=== PATIENT | female | born 1995 | race Caucasian/White ===

== ENCOUNTER 2021-04-05 13:55 | Emergency (ER) | payer OTHER, SELFPAY ==
--- NOTE | ~2021-04-05 | XR_ITS ---
EXAMINATION: XR CHEST CLINICAL INFORMATION: Cough. COMPARISON: None TECHNIQUE: Frontal view of the chest was obtained. FINDINGS: No significant abnormality is noted involving the heart, lungs, mediastinum, bony thorax or soft tissues. XR/XR chest 1V IMPRESSION: Unremarkable chest examination.
[2021-04-05 14:44] VITALS: BP 102/59; PULSE 79; RESP 18; TEMP 36.6; BMI 23.1
[2021-04-05 15:37] LABS: Influenza A PCR NEGATIVE (Negative); Influenza B PCR NEGATIVE (Negative); Resp Syncy Virus RNA Qual PCR NEGATIVE (Negative); SARS COV2 PCR INHOUSE NEGATIVE (Negative)
--- NOTE | 2021-04-05 16:14 | ED.GENADULT ---
HPI - General Adult General Chief complaint: General Medical Stated complaint: headache, back & neck pain Time Seen by Provider: 04/05/21 15:41 Source: patient Mode of arrival: ambulatory Limitations: no limitations History of Present Illness HPI narrative: Patient presents to ED for like viral like syndrome. Patient states last week she had a cough, body aches and headache. Patient now states bilateral lumps on back of neck. Patient states slight chest pain but no shortness of breath. Patient states she is vaccinated against COVID. Denies any exposure recently to COVID. Patient states no one else at home having similar symptoms. Related Data Allergies Allergy/AdvReac Type Severity Reaction Status Date / Time No Known Allergies Allergy Verified 04/05/21 14:42 Review of Systems Review of Systems: Yes all other systems are reviewed and are negative Constitutional: Constitutional: Reports as per HPI, Reports no additional constitutional complaints, Reports body ache(s), Reports chills and Reports headache(s) Eyes: Eyes: Reports as per HPI and Reports no additional eye complaints ENT: Reports system reviewed and no additional complaints, except as documented, Reports as per HPI, Reports headache(s) and Reports neck pain Cardiovascular: Cardiovascular: Reports as per HPI and Reports no additional cardiovascular complaints Respiratory: Respiratory: Reports as per HPI, Reports no additional respiratory complaints and Reports cough Gastrointestinal: Gastrointestinal: Reports as per HPI and Reports no additional gastrointestinal complaints Genitourinary: Genitourinary: Reports no additional female genitourinary complaints and Reports as per HPI Musculoskeletal: Musculoskeletal: Reports no additional musculoskeletal complaints, Reports as per HPI and Reports neck pain Neurologic: Reports system reviewed and no additional complaints, except as documented, Reports as per HPI and Reports headache(s) Psychiatric: Psychiatric: Reports no additional psychiatric complaints and Reports as per HPI [facility], [facility] Social History Social History Advance Directives: No Advance Directives Information Provided: Yes Patient : No Physical Exam Vital Signs: Vital Signs: Last Vital Signs Temp 98.3 F 04/05/21 17:03 Pulse 73 04/05/21 17:03 Resp 20 04/05/21 17:03 BP 104/62 04/05/21 17:03 Pulse Ox 99 04/05/21 17:03 Body Mass Index 23.1 Const: General: cooperative, healthy appearing, comfortable, no acute distress, well developed, alert, awake and Physically active Orientation/consciousness: oriented to person and oriented to place HENMT: Head: Yes normal to inspection, Yes No palpable skull fracture present, Yes normocephalic and Yes atraumatic Eyes: General: appearance normal, both eyes and all related structures Neck: Neck: Yes normal visual inspection, Yes full ROM and Yes lymphadenopathy Neck images: 1. Tender lymphadenopathy, posterior cervical. Cervical lymph node is not mobile. 2. Tender lymphadenopathy, posterior cervical. Cervical lymph node is not mobile. Chest: Chest palpation & inspection: normal inspection of the chest and normal palpation of entire chest wall Resp: Effort & Inspection: normal respiratory effort and able to speak in complete sentences Auscultation: clear to auscultation bilaterally Cardio: Jugular venous distension: no JVD Heart sounds: S1 normal heart sound present and S2 normal heart sound present GI: Inspection: Yes normal to inspection and No abdominal wall ecchymosis Palpation (GI): Soft to palpation, not firm, nontender, no guarding and not rigid : General: No CVA tenderness and Yes no CVA tenderness Back/Spine/Pelvis: Back: no CVA tenderness, No CVA tenderness and No back tenderness Skin: General skin exam: no rashes or lesions noted and elasticity normal Neuro: General: oriented to person and oriented to place Extrem: General: Yes normal to inspection and Yes full ROM Psych: Appearance: grossly normal, well kempt and not disheveled Course Course Course Narrative: Not suspecting lymphoma. Will do chest x-ray and SARS swab. Reevaluation(s) Reevaluation #1: Not suspecting lymphoma due to patient having tender bilateral lymphadenopathy posterior cervical lymph nodes with viral syndrome. Symptoms only been occurring for 1 week. SARs came back negative. Chest x-ray normal and negative for mass. Case discussed with Dr. Worrell who agrees unlikley patient having lymphoma. Will do basic labs and send mono. Negative for subclavicular, axillary, mediastinal, or umbilical lymphadenopathy. Time: 17:01 Reevaluation #2: Patient has mono came back positive. Patient to be discharged. Patient educated no sport contact due to risk of splenic rupture. Time: 18:18 Medical Decision Making MDM Narrative Medical decision making narrative: Ware Lab Data Result diagrams: 04/05/21 16:59 04/05/21 16:59 Labs: Lab Results 04/05/21 04/05/21 04/05/21 Range/Units 14:54 16:59 16:59 WBC 11.7 H (4.8-10.8) X10*3/uL RBC 4.94 (4.20-5.50) X10*6/uL Hgb 10.8 L (12.0-16.0) g/dl Hct 34.9 L (37.0-47.0) % MCV 70.6 L (80.0-98.0) fL MCH 21.9 L (27.0-33.0) pg MCHC 30.9 L (31.0-35.0) g/dl RDW 16.7 H (11.0-16.0) % Plt Count 303 (160-400) X10*3/uL MPV 10.5 (9.4-12.3) fL Immature Gran % (Auto) Cancelled Neut % (Auto) Cancelled Lymph % (Auto) Cancelled Ware % (Auto) Cancelled Eos % (Auto) Cancelled Baso % (Auto) Cancelled Lymph # (Auto) Cancelled Ware # (Auto) Cancelled Eos # (Auto) Cancelled Baso # (Auto) Cancelled Abs Immat Gran (auto) Cancelled Absolute Neuts (auto) Cancelled Absolute Nucleated RBC 0.000 (0.0-0.012) X10*3/uL Nucleated RBC % (auto) 0.0 (0.0-0.2) /100WBC Neutrophils % (Manual) 13 L (45-73) % Band Neutrophils % 8 H (3-5) % Lymphocytes % (Manual) 20 (20-40) % Atypical Lymphs % (Man) 47 H (0-6) % Monocytes % (Manual) 11 (2-11) % Basophils % (Manual) 1 (0-2) % Abs Neuts (Manual) 2.5 (2.0-8.3) X10*3/uL Lymphocytes # (Manual) 2.3 (1.2-4.9) X10*3/uL Atyp Lymphs # (Manual) 5.5 x10*3/uL Monocytes # (Manual) 1.3 H (0.1-1.2) X10*3/uL Basophils # (Manual) 0.1 (0.0-0.2) X10*3/uL Platelet Estimate NORMAL (NORMAL) Plt Morphology Comment NORMAL RBC Morphology NORMAL Smear Tech's Comments MANUAL DIFF Sodium 141 (135-145) mmol/L Potassium 4.3 (3.3-5.1) mmol/L Chloride 107 (96-108) mmol/L Carbon Dioxide 24 (22-29) mmol/L Anion Gap 14 (12-20) BUN 10 (9-16) mg/dL Creatinine 0.64 (0.5-1.4) mg/dL Estim Creat Clear Calc 117.0 Estimated GFR > 60 Random Glucose 81 (60-115) mg/dL Calcium 9.1 (8.4-10.2) mg/dL Total Bilirubin 0.2 (0.0-1.0) mg/dL AST 129 H (5-31) U/L ALT 130 H (0-31) U/L Alkaline Phosphatase 132 H (39-117) U/L Total Protein 7.2 (6.5-8.0) g/dL Albumin 4.1 (3.5-5.0) g/dL Beta HCG, Quant < 2 mIU/mL Monoscreen (Negative) Influenza Type A (PCR) NEGATIVE (Negative) Influenza Type B (PCR) NEGATIVE (Negative) RSV RNA Qual (PCR) NEGATIVE (Negative) SARS-CoV-2 RNA (RT-PCR) NEGATIVE (Negative) S. pyogenes GrpA CARLOS ALBERTO (Negative) 04/05/21 04/05/21 Range/Units 16:59 16:59 WBC (4.8-10.8) X10*3/uL RBC (4.20-5.50) X10*6/uL Hgb (12.0-16.0) g/dl Hct (37.0-47.0) % MCV (80.0-98.0) fL MCH (27.0-33.0) pg MCHC (31.0-35.0) g/dl RDW (11.0-16.0) % Plt Count (160-400) X10*3/uL MPV (9.4-12.3) fL Immature Gran % (Auto) Neut % (Auto) Lymph % (Auto) Ware % (Auto) Eos % (Auto) Baso % (Auto) Lymph # (Auto) Ware # (Auto) Eos # (Auto) Baso # (Auto) Abs Immat Gran (auto) Absolute Neuts (auto) Absolute Nucleated RBC (0.0-0.012) X10*3/uL Nucleated RBC % (auto) (0.0-0.2) /100WBC Neutrophils % (Manual) (45-73) % Band Neutrophils % (3-5) % Lymphocytes % (Manual) (20-40) % Atypical Lymphs % (Man) (0-6) % Monocytes % (Manual) (2-11) % Basophils % (Manual) (0-2) % Abs Neuts (Manual) (2.0-8.3) X10*3/uL Lymphocytes # (Manual) (1.2-4.9) X10*3/uL Atyp Lymphs # (Manual) x10*3/uL Monocytes # (Manual) (0.1-1.2) X10*3/uL Basophils # (Manual) (0.0-0.2) X10*3/uL Platelet Estimate (NORMAL) Plt Morphology Comment RBC Morphology Smear Tech's Comments Sodium (135-145) mmol/L Potassium (3.3-5.1) mmol/L Chloride (96-108) mmol/L Carbon Dioxide (22-29) mmol/L Anion Gap (12-20) BUN (9-16) mg/dL Creatinine (0.5-1.4) mg/dL Estim Creat Clear Calc Estimated GFR Random Glucose (60-115) mg/dL Calcium (8.4-10.2) mg/dL Total Bilirubin (0.0-1.0) mg/dL AST (5-31) U/L ALT (0-31) U/L Alkaline Phosphatase (39-117) U/L Total Protein (6.5-8.0) g/dL Albumin (3.5-5.0) g/dL Beta HCG, Quant mIU/mL Monoscreen Positive A (Negative) Influenza Type A (PCR) (Negative) Influenza Type B (PCR) (Negative) RSV RNA Qual (PCR) (Negative) SARS-CoV-2 RNA (RT-PCR) (Negative) S. pyogenes GrpA CARLOS ALBERTO Negative (Negative) Discharge Plan Discharge Clinical Impression: Mononucleosis Patient Disposition: Home, Self-Care Instructions: Mononucleosis (ED) Additional Instructions: You came back positive for mononucleosis. Which is the cause of your symptoms. Please avoid any physical contact sport which could lead to splenic rupture. You can take naproxen and Tylenol for pain and fever relief. You will be given days off from work. Presents to the ED for any chest pain, shortness of breath, weakness, dizziness, abdominal pain, intractable fever, weakness, or any other concerning symptoms. Please follow-up with primary care provider. Stand Alone Forms: Work/School Release Interventions: ED Discharge Assessment Last Done: 04/05/21 18:30 Discharge Date/Time: 04/05/21 18:36 Print Language: Hungarian
[2021-04-05 17:03] VITALS: BP 104/62; PULSE 73; RESP 20; TEMP 36.8; O2SAT 99
[2021-04-05 17:11] LABS: Hematocrit 34.9 % (37.0-47.0); Hemoglobin 10.8 g/dl (12.0-16.0); Mean Corpuscular HGB Conc 30.9 g/dl (31.0-35.0); Mean Corpuscular Hemoglobin 21.9 pg (27.0-33.0); Mean Corpuscular Volume 70.6 fL (80.0-98.0); Mean Platelet Volume 10.5 fL (9.4-12.3); Platelet Count 303 X10*3/uL (160-400); Red Blood Count 4.94 X10*6/uL (4.20-5.50); Red Cell Distribution Width 16.7 % (11.0-16.0); White Blood Count 11.7 X10*3/uL (4.8-10.8)
[2021-04-05 17:32] LABS: IDNOW Serial# 9DD0AD1C; Strep A Nucleic Acid Negative (Negative)
[2021-04-05 17:44] LABS: Alanine Aminotransferase 130 U/L (0-31); Albumin Level 4.1 g/dL (3.5-5.0); Alkaline Phosphatase 132 U/L (39-117); Anion Gap 14 (12-20); Aspartate Amino Transferase 129 U/L (5-31); Bilirubin Total 0.2 mg/dL (0.0-1.0); Blood Urea Nitrogen 10 mg/dL (9-16); Calcium 9.1 mg/dL (8.4-10.2); Carbon Dioxide 24 mmol/L (22-29); Chloride 107 mmol/L (96-108); Estimated Glomerular Filt Rate > 60; Glucose Random 81 mg/dL (60-115); Potassium 4.3 mmol/L (3.3-5.1); Sodium 141 mmol/L (135-145); Total Protein 7.2 g/dL (6.5-8.0)
[2021-04-05 18:07] LABS: Monotest Positive (Negative); SLIDE REVIEW MANUAL DIFF
[2021-04-05 18:09] LABS: HCG Quantitative < 2 mIU/mL
[2021-04-05 18:10] LABS: Atypical Lymph Absolute Manual 5.5 x10*3/uL; Atypical Lymphs Percent Manual 47 % (0-6); Band Neutrophils Percent 8 % (3-5); Basophils Abs Manual 0.1 X10*3/uL (0.0-0.2); Basophils Percent Manual 1 % (0-2); Lymphocytes Absolute Manual 2.3 X10*3/uL (1.2-4.9); Lymphocytes Percent Manual 20 % (20-40); Monocytes Absolute Manual 1.3 X10*3/uL (0.1-1.2); Monocytes Percent Manual 11 % (2-11); Neutrophils Absolute Manual 2.5 X10*3/uL (2.0-8.3); Neutrophils Percent Manual 13 % (45-73); Platelet Estimate NORMAL (NORMAL); Platelet Morphology Comment NORMAL; RBC Morphology NORMAL
== END 2021-04-05 18:36 | disposition home or self-care (01) ==
PROVIDERS: Physician Assistant; Emergency Provider Emergency Medicine Emergency Medical Services
DX: B27.90 Infectious mononucleosis, unspecified without complication (principal); M54.2 Cervicalgia; Z20.822 Contact with and (suspected) exposure to COVID-19
CPT/HCPCS: 0241U; 36415; 71045; 80053; 84702; 85007; 85027; 86308; 87651; 99283; 99284

== ENCOUNTER 2022-01-10 11:21 | Inpatient (IN) | payer OTHER, SELFPAY ==
--- NOTE | ~2022-01-10 | XR_ITS ---
EXAMINATION: XR CHEST CLINICAL INFORMATION: Muscle pain. COMPARISON: CXR from 01/10/2022. TECHNIQUE: Frontal view of the chest was obtained. FINDINGS: Lungs are hypoinflated and lower lung zones suboptimally evaluated. Interval development of nonspecific hazy and somewhat patchy opacity in the lower lobes (left worse than right). Findings could represent atelectasis or pneumonitis. The left lateral costophrenic sulcus is slightly blunted, possible trace pleural effusion. Cardiac silhouette has normal size and contour. The pulmonary vascular pattern is normal. The visualized bones, and upper abdomen, are unremarkable. XR/XR chest 1V IMPRESSION: The lungs are hypoinflated and lower lobes suboptimally evaluated. There are new hazy, patchy opacities from atelectasis or pneumonia in lower lobes.
--- NOTE | ~2022-01-10 | US_ITS ---
EXAMINATION: US RETROPERITONEAL LIMITED (RENAL ONLY) CLINICAL INFORMATION: Wedge-shaped possible abscess area on CT imaging in patient with flank pain.. COMPARISON: CT abdomen from 01/10/2022. TECHNIQUE: Sonographic imaging of the kidneys was performed using a curved 5 MHz transducer. FINDINGS: RIGHT KIDNEY: 12.2 x 4.2 x 5.7 cm (SAG x AP x TRV). No nephrolithiasis or hydronephrosis. There is a region of slightly altered parenchymal echotexture of the mid to lower pole. This corresponds to the region of pyelonephritis and possible early abscess formation observed on 01/10/2022. There is no evidence of a intrarenal or perinephric fluid collection on this ultrasound examination. LEFT KIDNEY: 10.9 x 5.7 x 4.9 cm (SAG x AP x TRV). The kidney is normal in size, contour, and echogenicity. Renal cortical thickness is normal. No calculi or focal parenchymal lesions. No hydronephrosis. OTHER: Small left pleural effusion is observed. US/US renal BI IMPRESSION: The abnormality of the right kidney is better depicted on the recent abdomen CT than on this ultrasound examination. There is no sonographic evidence of renal abscess or perinephric fluid collection. There is an area of slightly altered parenchymal echotexture of the mid to lower pole of the right kidney, and this corresponds to the area of suspected pyelonephritis and possible early abscess formation seen on 01/10/2022. Small left pleural effusion is present.
--- NOTE | ~2022-01-10 | XR_ITS ---
EXAMINATION: XR CHEST CLINICAL INFORMATION: Tachycardia COMPARISON: None TECHNIQUE: Frontal view of the chest was obtained. FINDINGS: No significant abnormality is noted involving the heart, lungs, mediastinum, bony thorax or soft tissues. XR/XR chest 1V IMPRESSION: Unremarkable chest examination.
--- NOTE | ~2022-01-10 | CT_ITS ---
EXAMINATION: CT ABDOMEN AND PELVIS WITH CONTRAST CLINICAL INFORMATION: Bilateral flank pain COMPARISON: None TECHNIQUE: Multidetector volumetric images were obtained from the superior aspect of the liver through the pubic symphysis following administration 85 mL of Omnipaque 350 intravenous contrast. Sagittal and coronal reformatted images were obtained on the technologist's workstation. Oral contrast: No This CT examination was performed using dose optimization techniques as appropriate, variously including the following: *Automated exposure control *Adjustment of mA and/or kV according to patient size (this includes techniques or standardized protocols for targeted exams where dose is matched to indication/reason for exam; i.e. extremities or head) *Use of iterative reconstruction technique DLP: 498 mGy-cm FINDINGS: LUNG BASES: The visualized lung bases are unremarkable. Trace pericardial fluid. LIVER, GALLBLADDER, AND BILIARY TREE: The liver is normal in size, shape, and attenuation. No focal hepatic lesion or biliary ductal dilatation is present. The gallbladder is unremarkable with no evidence of radiopaque gallstones, gallbladder wall thickening, or obvious pericholecystic inflammatory changes. PANCREAS: Unremarkable. SPLEEN: Unremarkable. ADRENAL GLANDS: Unremarkable. KIDNEYS AND URETERS: Symmetric nephrograms. There is a wedge-shaped area of hypoenhancement/perfusion involving the lower pole the right kidney with small ill-defined low-density cortical foci, which could be compatible with focal pyelonephritis/lobar nephronia an early developing abscess formation. No well-formed the renal abscess identified. Mild perinephric stranding. No hydronephrosis. No perinephric collections. No radiodense renal calculi. BLADDER: Unremarkable. GASTROINTESTINAL TRACT: The small and large bowel are unremarkable. The appendix is unremarkable. No intra-abdominal free air. ABDOMINAL WALL: No significant hernia is appreciated. LYMPH NODES: No lymphadenopathy. VASCULAR: Normal caliber abdominal aorta. PELVIC VISCERA: 1.7 cm peripherally enhancing crenulated left sided corpus luteum. Small amount of free pelvic fluid. Gynecologic structures otherwise unremarkable. OSSEOUS STRUCTURES: Unremarkable. CT/CT abdomen pelvis w IV con IMPRESSION: 1. Wedge-shaped area of hyperenhancement/hyperperfusion in the lower pole of the right kidney with small low-density cortical foci and mild perinephric stranding. Appearance is compatible with acute focal pyelonephritis/acute lobar nephronia. No large well-formed abscess identified. The small low-density foci could represent early developing abscess formation. Correlate with urinalysis.
[2022-01-10 11:56] VITALS: BP 101/55; PULSE 133; RESP 18; TEMP 37.8; O2SAT 98; BMI 24.7
--- NOTE | 2022-01-10 11:59 | ECG_ITS ---
Test Reason : TACHYCARDIA Blood Pressure : / mmHG Vent. Rate : 118 BPM Atrial Rate : 118 BPM P-R Int : 140 ms QRS Dur : 102 ms QT Int : 312 ms P-R-T Axes : 063 101 055 degrees QTc Int : 437 ms Sinus tachycardia Rightward axis Incomplete right bundle branch block Nonspecific T wave abnormality Abnormal ECG No previous ECGs available Referred By: Generic ED Physician Electronically Signed By:DIA POWERS
[2022-01-10 12:13] LABS: Basophils Percent Auto 0.3 % (0-2); Hematocrit 33.7 % (37.0-47.0); Hemoglobin 10.6 g/dl (12.0-16.0); Imm Gran Abs Auto 0.08 X10*3/uL (0.00-0.03); Imm Gran Pct Auto 0.5 % (0.0-0.4); Lymphocytes Absolute Auto 0.8 X10*3/uL (1.2-4.9); MANUAL DIFF FLAG SCAN; Mean Corpuscular HGB Conc 31.5 g/dl (31.0-35.0); Mean Corpuscular Hemoglobin 21.2 pg (27.0-33.0); Mean Corpuscular Volume 67.4 fL (80.0-98.0); Mean Platelet Volume 10.3 fL (9.4-12.3); Monocytes Absolute Auto 0.5 X10*3/uL (0.1-1.2); Monocytes Percent Auto 3.5 % (2-11); Neutrophils Percent Auto 90.7 % (45-73); Platelet Count 240 X10*3/uL (160-400); Red Cell Distribution Width 15.9 % (11.0-16.0); SCAN SMEAR FLAG 1; White Blood Count 15.5 X10*3/uL (4.8-10.8)
[2022-01-10 12:28] LABS: Anion Gap 15 (12-20); Blood Urea Nitrogen 17 mg/dL (9-16); Calcium 8.8 mg/dL (8.4-10.2); Carbon Dioxide 20 mmol/L (22-29); Chloride 106 mmol/L (96-108); Creatinine Clr Calc Pharmacy 100.2; Estimated Glomerular Filt Rate > 60; Glucose Random 101 mg/dL (60-115); Potassium 3.6 mmol/L (3.3-5.1); Sodium 137 mmol/L (135-145)
[2022-01-10 12:30] LABS: COVID-19 Test Negative (Negative); IDNOW Serial# 16C4AD1C
[2022-01-10 12:33] LABS: SLIDE REVIEW VERIFIED
[2022-01-10 12:34] LABS: Troponin-I High Sensitivity < 3.5 ng/L (<3.5-17.0)
[2022-01-10] MEDS: Acetaminophen 325 MG TABLET 650 MG PO ×2 (13:31→23:01)
[2022-01-10 15:43] VITALS: BP 102/49; PULSE 109; RESP 18; TEMP 37.7; O2SAT 99
--- NOTE | 2022-01-10 15:47 | ED_ITS ---
HPI - General Adult General Chief complaint: Arrhythmia/Palpitations Stated complaint: Body aches/Fever/Headache Time Seen by Provider: 01/10/22 15:47 Source: patient Mode of arrival: ambulatory Limitations: no limitations History of Present Illness HPI narrative: 26-year-old female with no significant medical history presents to the emergency department with myalgias, fatigue, malaise, nausea, vomiting, dizziness described as lightheadedness, headache described as diffuse, bilateral, which feels like her typical without vision changes, bilateral flank pain, diffuse abdominal pain all of which started last night around 23:00. Patient tells me this feels like the time she had mononucleosis about a year ago. Patient tells me she feels horrible. Denies chest pain, shortness of breath, recent sick contacts. Patient tells me she is up-to-date on her COVID vaccine. Related Data Allergies Allergy/AdvReac Type Severity Reaction Status Date / Time No Known Allergies Allergy Verified 01/10/22 11:56 Review of Systems Review of Systems: Constitutional : No Weight loss, No Fever, No Chills, + Fatigue, + Malaise ENT/Mouth : No sore throat, No Rhinorrhea Eyes: No Eye Pain, No Swelling, No Redness Cardiovascular : No Chest Pain, No SOB, No Dyspnea on Exertion, No Orthopnea, No Edema, No Palpitations Respiratory : No Cough, No Sputum, No Wheezing Gastrointestinal : + Nausea, + Vomiting, No Diarrhea, No Constipation, No abdominal Pain, No Hematochezia, No Melena Genitourinary : No Dysuria, No Urinary Frequency, No Hematuria, Musculoskeletal : + joint pain, + Myalgias, No Joint Swelling Skin : No Skin Lesions, No rash Neuro : No Weakness, No Numbness, + Dizziness, + Headache Psych : No Anxiety/Panic, No Depression All other systems reviewed and are negative Yes all other systems are reviewed and are negative [facility] Past Medical History Attestation statement: The following information was validated with the patient. Source: old records reviewed and nursing notes reviewed Medical History (Updated 01/10/22 @ 17:39 by CLAYTON Salazar) No known health problems Social History Social History Patient Tobacco Use Status: Current everyday Tobacco user Use of substances other than those prescribed or required for medical reasons: No Advance Directives: No Advance Directives Information Provided: No Physical Exam ED Vital Signs: Vital Signs - 24 hr 01/10/22 11:56 01/10/22 15:43 01/10/22 16:19 Temperature 100.0 F 99.8 F Pulse Rate 133 H 109 H 102 H Respiratory Rate 18 18 18 Blood Pressure 101/55 L 102/49 L 101/53 L Pulse Oximetry 98 99 100 Oxygen Delivery Method Room Air Room Air Room Air 01/10/22 16:36 Temperature 99.4 F Pulse Rate Respiratory Rate Blood Pressure Pulse Oximetry Oxygen Delivery Method BMI result Body Mass Index 24.7 tachycardia and low grade fever. Appearance: Alert.? Oriented X3.? No acute distress.? Head: Normocephalic, atraumatic, no step-offs or deformities Eyes: Pupils equal, round and reactive to light.? Neck: Normal inspection.? Neck supple.? Negative Kernig and Brudzinski. CVS: Rapid rate, regular rhythm likely sinus tachycardia..? Pulses normal.? Respiratory: No respiratory distress.? Breath sounds normal.? Abdomen: Soft and + diffusely tender.? Skin: Skin warm and dry.? Normal skin color.? Normal skin turgor.? Extremities: No lower extremity edema.? No calf ttp. 5/5 strength to bilateral upper and lower extremities 2+ DTR to patella equal and b/l Back: No midline tenderness, no C-spine tenderness, full range of motion, + CVA tenderness bilaterally Neuro: Oriented X 3.? No motor deficit.? No sensory deficit. CN 2-12 intact . No saddle paresthesias. Normal tandem gait w/ normal cordination, normal finger to nose, normal heel to [place]. Course Reevaluation(s) Reevaluation #1: Patient noted to have slight leukocytosis, and a baseline microcytic anemia, patient without electrolyte abnormalities requiring intervention, troponin negative, EKG nonischemic, chest x-ray within normal limits. Rapid COVID nega tive. At this time pending mono spot, urine, flu/COVID/RSV. Time: 16:21 Reevaluation #2: Flu/COVID/RSV and mono spot negative. CT of the abdomen and pelvis pending at this time. Urine with leukocyte esterases, based off patient's symptoms will treat for UTI. Time: 17:20 Reevaluation #3: CT scan concerning for pyelonephritis. Which is consistent with patient's bilateral flank pain, fevers, chills, CVA tenderness bilaterally on exam. At this time patient will be started on Levaquin as infection is suspected. Time: 17:33 Additional Reevaluation(s): Patient will be admitted to the hospital for further evaluation and tx Medical Decision Making MDM Narrative Medical decision making narrative: 1556 26 yo f presents w/body aches and pains, subjective fevers and chills, bilateral flank pain, abdominal pain, lightheadedness all which started at 11 pm PE physical examination significant for bilateral CVA tenderness, normal neurological exam, cerebellar function intact. Vital signs significant for low- grade fever, tachycardia. Likely viral in origin. I do not suspect meningitis, cauda equina, epidural abscess, posterior stroke, stroke. Concerns for urinary tract infection or pyelonephritis. Plan labs, urine, flu/COVID/RSV, mono spot, blood cultures and lactic acid. Medical Records Medical records reviewed: Yes I reviewed the patient's medical records. Lab Data Lab results reviewed: Yes I reviewed the patient's lab results. Result diagrams: 01/10/22 12:03 01/10/22 12:03 Labs: Lab Results 01/10/22 01/10/22 01/10/22 Range/Units 11:58 12:03 12:03 WBC 15.5 H (4.8-10.8) X10*3/uL RBC 5.00 (4.20-5.50) X10*6/uL Hgb 10.6 L (12.0-16.0) g/dl Hct 33.7 L (37.0-47.0) % MCV 67.4 L (80.0-98.0) fL MCH 21.2 L (27.0-33.0) pg MCHC 31.5 (31.0-35.0) g/dl RDW 15.9 (11.0-16.0) % Plt Count 240 (160-400) X10*3/uL MPV 10.3 (9.4-12.3) fL Immature Gran % (Auto) 0.5 H (0.0-0.4) % Neut % (Auto) 90.7 H (45-73) % Lymph % (Auto) 5.0 L (20-40) % Miner % (Auto) 3.5 (2-11) % Eos % (Auto) 0.0 (0-4) % Baso % (Auto) 0.3 (0-2) % Lymph # (Auto) 0.8 L (1.2-4.9) X10*3/uL Miner # (Auto) 0.5 (0.1-1.2) X10*3/uL Eos # (Auto) 0.0 (0.0-0.4) X10*3/uL Baso # (Auto) 0.0 (0.0-0.2) X10*3/uL Abs Immat Gran (auto) 0.08 H (0.00-0.03) X10*3/uL Absolute Neuts (auto) 14.0 H (2.0-8.3) x10*3/uL Absolute Nucleated RBC 0.000 (0.0-0.012) X10*3/uL Nucleated RBC % (auto) 0.0 (0.0-0.2) /100WBC Smear Tech's Comments VERIFIED Sodium 137 (135-145) mmol/L Potassium 3.6 (3.3-5.1) mmol/L Chloride 106 (96-108) mmol/L Carbon Dioxide 20 L (22-29) mmol/L Anion Gap 15 (12-20) BUN 17 H (9-16) mg/dL Creatinine 0.77 (0.5-1.4) mg/dL Estim Creat Clear Calc 100.2 Estimated GFR > 60 Random Glucose 101 (60-115) mg/dL Lactic Acid (0.5-2.0) mmol/L Calcium 8.8 (8.4-10.2) mg/dL Total Bilirubin 0.6 (0.0-1.0) mg/dL Direct Bilirubin 0.3 (0.0-0.5) mg/dL AST 20 D (5-31) U/L ALT 9 (0-31) U/L Alkaline Phosphatase 46 D (39-117) U/L Troponin I High Sens (<3.5-17.0) ng/L Total Protein 7.2 (6.5-8.0) g/dL Albumin 4.3 (3.5-5.0) g/dL Beta HCG, Quant < 2 mIU/mL Urine Color Urine Appearance Urine pH (5.0-9.0) Ur Specific Dulzura (1.005-1.025) Urine Protein (Neg-Trace) mg/dL Urine Glucose (UA) (Negative) mg/dL Urine Ketones (Negative) mg/dL Urine Blood (Negative) Urine Nitrite (Negative) Ur Leukocyte Esterase (Negative) Urine RBC (0-2) /HPF Urine WBC (0-5) /HPF Ur Squamous Epith Cells (0-2) /HPF Urine Bacteria (None Seen) Hyaline Casts (0-2) /LPF COVID-19 (HALEY) Negative (Negative) COVID-19 Clin Com See Note Monoscreen (Negative) Influenza Type A (PCR) (Negative) Influenza Type B (PCR) (Negative) RSV RNA Qual (PCR) (Negative) SARS-CoV-2 RNA (RT-PCR) (Negative) 01/10/22 01/10/22 01/10/22 Range/Units 12:03 16:30 16:30 WBC (4.8-10.8) X10*3/uL RBC (4.20-5.50) X10*6/uL Hgb (12.0-16.0) g/dl Hct (37.0-47.0) % MCV (80.0-98.0) fL MCH (27.0-33.0) pg MCHC (31.0-35.0) g/dl RDW (11.0-16.0) % Plt Count (160-400) X10*3/uL MPV (9.4-12.3) fL Immature Gran % (Auto) (0.0-0.4) % Neut % (Auto) (45-73) % Lymph % (Auto) (20-40) % Miner % (Auto) (2-11) % Eos % (Auto) (0-4) % Baso % (Auto) (0-2) % Lymph # (Auto) (1.2-4.9) X10*3/uL Miner # (Auto) (0.1-1.2) X10*3/uL Eos # (Auto) (0.0-0.4) X10*3/uL Baso # (Auto) (0.0-0.2) X10*3/uL Abs Immat Gran (auto) (0.00-0.03) X10*3/uL Absolute Neuts (auto) (2.0-8.3) x10*3/uL Absolute Nucleated RBC (0.0-0.012) X10*3/uL Nucleated RBC % (auto) (0.0-0.2) /100WBC Smear Tech's Comments Sodium (135-145) mmol/L Potassium (3.3-5.1) mmol/L Chloride (96-108) mmol/L Carbon Dioxide (22-29) mmol/L Anion Gap (12-20) BUN (9-16) mg/dL Creatinine (0.5-1.4) mg/dL Estim Creat Clear Calc Estimated GFR Random Glucose (60-115) mg/dL Lactic Acid 1.4 (0.5-2.0) mmol/L Calcium (8.4-10.2) mg/dL Total Bilirubin (0.0-1.0) mg/dL Direct Bilirubin (0.0-0.5) mg/dL AST (5-31) U/L ALT (0-31) U/L Alkaline Phosphatase (39-117) U/L Troponin I High Sens < 3.5 (<3.5-17.0) ng/L Total Protein (6.5-8.0) g/dL Albumin (3.5-5.0) g/dL Beta HCG, Quant mIU/mL Urine Color Urine Appearance Urine pH (5.0-9.0) Ur Specific Dulzura (1.005-1.025) Urine Protein (Neg-Trace) mg/dL Urine Glucose (UA) (Negative) mg/dL Urine Ketones (Negative) mg/dL Urine Blood (Negative) Urine Nitrite (Negative) Ur Leukocyte Esterase (Negative) Urine RBC (0-2) /HPF Urine WBC (0-5) /HPF Ur Squamous Epith Cells (0-2) /HPF Urine Bacteria (None Seen) Hyaline Casts (0-2) /LPF COVID-19 (HALEY) (Negative) COVID-19 Clin Com Monoscreen (Negative) Influenza Type A (PCR) NEGATIVE (Negative) Influenza Type B (PCR) NEGATIVE (Negative) RSV RNA Qual (PCR) NEGATIVE (Negative) SARS-CoV-2 RNA (RT-PCR) NEGATIVE (Negative) 09/06/22 09/06/22 Range/Units 16:30 16:31 WBC (4.8-10.8) X10*3/uL RBC (4.20-5.50) X10*6/uL Hgb (12.0-16.0) g/dl Hct (37.0-47.0) % MCV (80.0-98.0) fL MCH (27.0-33.0) pg MCHC (31.0-35.0) g/dl RDW (11.0-16.0) % Plt Count (160-400) X10*3/uL MPV (9.4-12.3) fL Immature Gran % (Auto) (0.0-0.4) % Neut % (Auto) (45-73) % Lymph % (Auto) (20-40) % Miner % (Auto) (2-11) % Eos % (Auto) (0-4) % Baso % (Auto) (0-2) % Lymph # (Auto) (1.2-4.9) X10*3/uL Miner # (Auto) (0.1-1.2) X10*3/uL Eos # (Auto) (0.0-0.4) X10*3/uL Baso # (Auto) (0.0-0.2) X10*3/uL Abs Immat Gran (auto) (0.00-0.03) X10*3/uL Absolute Neuts (auto) (2.0-8.3) x10*3/uL Absolute Nucleated RBC (0.0-0.012) X10*3/uL Nucleated RBC % (auto) (0.0-0.2) /100WBC Smear Tech's Comments Sodium (135-145) mmol/L Potassium (3.3-5.1) mmol/L Chloride (96-108) mmol/L Carbon Dioxide (22-29) mmol/L Anion Gap (12-20) BUN (9-16) mg/dL Creatinine (0.5-1.4) mg/dL Estim Creat Clear Calc Estimated GFR Random Glucose (60-115) mg/dL Lactic Acid (0.5-2.0) mmol/L Calcium (8.4-10.2) mg/dL Total Bilirubin (0.0-1.0) mg/dL Direct Bilirubin (0.0-0.5) mg/dL AST (5-31) U/L ALT (0-31) U/L Alkaline Phosphatase (39-117) U/L Troponin I High Sens (<3.5-17.0) ng/L Total Protein (6.5-8.0) g/dL Albumin (3.5-5.0) g/dL Beta HCG, Quant mIU/mL Urine Color Yellow Urine Appearance Clear Urine pH 5.5 (5.0-9.0) Ur Specific Dulzura 1.025 (1.005-1.025) Urine Protein Trace (Neg-Trace) mg/dL Urine Glucose (UA) Negative (Negative) mg/dL Urine Ketones Trace (Negative) mg/dL Urine Blood Negative (Negative) Urine Nitrite Negative (Negative) Ur Leukocyte Esterase Moderate (2+) H (Negative) Urine RBC 0-2 (0-2) /HPF Urine WBC 6-10 H (0-5) /HPF Ur Squamous Epith Cells 3-5 (0-2) /HPF Urine Bacteria 4+ (None Seen) Hyaline Casts 0-2 (0-2) /LPF COVID-19 (HALEY) (Negative) COVID-19 Clin Com Monoscreen Negative (Negative) Influenza Type A (PCR) (Negative) Influenza Type B (PCR) (Negative) RSV RNA Qual (PCR) (Negative) SARS-CoV-2 RNA (RT-PCR) (Negative) Critical Care Time Critical Care Time Critical Care Time: No Discharge Plan Discharge Clinical Impression: Pyelonephritis Patient Disposition: Admitted As Inpatient
[2022-01-10 16:14] LABS: Alanine Aminotransferase 9 U/L (0-31); Albumin Level 4.3 g/dL (3.5-5.0); Alkaline Phosphatase 46 U/L (39-117); Aspartate Amino Transferase 20 U/L (5-31); Bilirubin Direct 0.3 mg/dL (0.0-0.5); Bilirubin Total 0.6 mg/dL (0.0-1.0); Total Protein 7.2 g/dL (6.5-8.0)
[2022-01-10 16:19] VITALS: BP 101/53; PULSE 102; RESP 18; O2SAT 100
[2022-01-10 16:34] LABS: HCG Quantitative < 2 mIU/mL
[2022-01-10] MEDS: 0.9 % Sodium Chloride 1,000 ML 999 ML IV (16:34)
[2022-01-10 16:36] VITALS: TEMP 37.4
[2022-01-10 16:44] LABS: Appearance Urine Clear; Color Urine Yellow; Glucose Urine UA Negative (Negative); Leukocyte Esterase Urine Moderate (2+) (Negative); Nitrite Urine Negative (Negative); PH 5.5 (5.0-9.0); Specific Gravity - Urine 1.025 (1.005-1.025); Urine Blood Negative (Negative); Urine Ketones Trace mg/dL (Negative); Urine Protein Trace mg/dL (Neg-Trace)
[2022-01-10 16:50] LABS: Lactic Acid 1.4 mmol/L (0.5-2.0)
[2022-01-10 16:53] LABS: Monotest Negative (Negative)
[2022-01-10] MEDS: iohexoL 350 MG/ML 100 ML INFUS..BTL IV (16:55)
[2022-01-10 17:05] LABS: Bacteria Urine 4+ (None Seen); Hyaline Casts Urine 0-2 /LPF (0-2); RBC Urine 0-2 /HPF (0-2)
[2022-01-10 17:16] LABS: Influenza A PCR NEGATIVE (Negative); Influenza B PCR NEGATIVE (Negative); Resp Syncy Virus RNA Qual PCR NEGATIVE (Negative); SARS COV2 PCR INHOUSE NEGATIVE (Negative)
[2022-01-10] MEDS: Ketorolac Tromethamine 15 MG/ML VIAL 30 MG IM (17:40)
[2022-01-10] MEDS: levoFLOXacin/D5W 750 MG/150 ML PIGGYBACK 100 MG IV (17:41)
--- NOTE | 2022-01-10 18:09 | P.HPHOSP_ITS ---
History of Present Illness Date of Service: 01/10/22 Attending physician on admission: Jeremie Solano Chief Complaint: pyelonephritis Patient with history of nephrolithiasis who vapes nicotine daily presented to hospital this morning for evaluation of myalgias, fatigue, malaise, nausea, v omiting, dizziness described as lightheadedness, headache without vision changes, bilateral flank pain, diffuse abdominal pain all of which started last night around 23:00. On arrival temperatue 100.0, tachycardic at 133. No hypotension. Leukocytosis 15.5. Stable microcytic anemia 10.6/33.7%. Renal function normal. UA with 2+ leuks, neg blood, 4+ bacteria, neg nitrites. CT abd/pelvis showed wedge shaped area of hyperenhancement/hyperperfusion in the lower pole of the right kidney with small low-density cortical foci and mild perinephric stranding. Appearance compatible with acute focal pyelon ephritis/acute lobal nephronia. No large well-formed abscess identified. The small low-density foci could represent early developing abscess formation. Correlate with UA. CXR negative. IN ED, received IV fluids and 750mg levaquin IV as well as tylenol and ketorolac. Reporting 8/10 pain b/l flank and diffuse abdomen. Review of Systems Review of Systems: General: No fevers, malaise, unintentional weight loss Cardiovascular: No chest pain, palpitations, or leg edema Respiratory: No shortness of breath, wheezing, cough GI: +abd pain, nausea, vomiting x1. No diarrhea, constipation, melena, hematochezia : No dysuria, hematuria, increased frequency urination, or urgency MSK: Bilateral flank pain Neuro: + headache. No weakness, paresthesias Skin: No rashes or lesions [facility] Medical History (Updated 01/10/22 @ 18:26 by CLAYTON Marie) Nephrolithiasis Sepsis Family History (Updated 01/10/22 @ 18:22 by CLAYTON Marie) Mother Nephrolithiasis Social History Patient Tobacco Use Status: Current everyday Tobacco user Use of substances other than those prescribed or required for medical reasons: No Advance Directives: No Advance Directives Information Provided: No Meds Allergies Allergy/AdvReac Type Severity Reaction Status Date / Time No Known Allergies Allergy Verified 01/10/22 11:56 Active Medications: Current Medications Levofloxacin (Levaquin) 750 mg in 150 mls @ 100 mls/hr IV ONCE ONE Stop: 01/10/22 19:02 Last Admin: 01/10/22 17:41 Dose: 100 mls/hr Pharmacy Consult (Consult Rx Perform Med Rec) 1 each MISCELLANE ONCE PRN PRN Reason: Consult order Home Medications Medication Instructions Recorded Confirmed Last Taken Type No Known Home Meds 01/10/22 01/10/22 Unknown History Physical Exam Vital Signs and Narrative: Vital Signs: Last Vital Signs Temp 99.4 F 01/10/22 16:36 Pulse 102 H 01/10/22 16:19 Resp 18 01/10/22 16:19 BP 101/53 L 01/10/22 16:19 Pulse Ox 100 01/10/22 16:19 O2 Del Method 01/10/22 16:19 BMI result Body Mass Index 24.7 Constitutional - Awake and Alert, uncomfortable appearing Eyes - PERRLA, EOMI Cardiovascular - S1S2, RRR, No edema Respiratory - Normal lung expansion, Normal respiratory effort, No respiratory distress, CTA bilaterally Gastrointestinal - Diffuse moderate ttp greatest RUQ, without guarding or rebound. Soft, ND; +BS - B/l CVA tenderness L>R Extremities - no calf tenderness bilaterally, no swelling Musculoskeletal - Normal inspection, normal ROM Skin - Warm/Dry Neurological - Alert & oriented x3, No focal deficit Psychological - Appropriate affect Results Labs CBC and Chem 7: 01/10/22 12:03 01/10/22 12:03 Labs: Laboratory Results - last 24 hr 01/10/22 01/10/22 01/10/22 11:58 12:03 12:03 MCV 67.4 L MCH 21.2 L MCHC 31.5 RDW 15.9 Plt Count 240 MPV 10.3 Immature Gran % (Auto) 0.5 H Neut % (Auto) 90.7 H Lymph % (Auto) 5.0 L [place] % (Auto) 3.5 Eos % (Auto) 0.0 Baso % (Auto) 0.3 Lymph # (Auto) 0.8 L [place] # (Auto) 0.5 Eos # (Auto) 0.0 Baso # (Auto) 0.0 Abs Immat Gran (auto) 0.08 H Absolute Neuts (auto) 14.0 H Absolute Nucleated RBC 0.000 Nucleated RBC % (auto) 0.0 Smear Tech's Comments VERIFIED Anion Gap 15 Estim Creat Clear Calc 100.2 Estimated GFR > 60 Random Glucose 101 Lactic Acid Calcium 8.8 Total Bilirubin 0.6 Direct Bilirubin 0.3 AST 20 D ALT 9 Alkaline Phosphatase 46 D Total Protein 7.2 Albumin 4.3 Beta HCG, Quant < 2 Urine Color Urine Appearance Urine pH Ur Specific [place] Urine Protein Urine Glucose (UA) Urine Ketones Urine Blood Urine Nitrite Ur Leukocyte Esterase Urine RBC Urine WBC Ur Squamous Epith Cells Urine Bacteria Hyaline Casts COVID-19 ([facility]) Negative COVID-19 Clin Com See Note Monoscreen Influenza Type A (PCR) Influenza Type B (PCR) RSV RNA Qual (PCR) SARS-CoV-2 RNA (RT-PCR) 01/10/22 01/10/22 01/10/22 16:30 16:30 16:30 MCV MCH MCHC RDW Plt Count MPV Immature Gran % (Auto) Neut % (Auto) Lymph % (Auto) [place] % (Auto) Eos % (Auto) Baso % (Auto) Lymph # (Auto) [place] # (Auto) Eos # (Auto) Baso # (Auto) Abs Immat Gran (auto) Absolute Neuts (auto) Absolute Nucleated RBC Nucleated RBC % (auto) Smear Tech's Comments Anion Gap Estim Creat Clear Calc Estimated GFR Random Glucose Lactic Acid 1.4 Calcium Total Bilirubin Direct Bilirubin AST ALT Alkaline Phosphatase Total Protein Albumin Beta HCG, Quant Urine Color Urine Appearance Urine pH Ur Specific [place] Urine Protein Urine Glucose (UA) Urine Ketones Urine Blood Urine Nitrite Ur Leukocyte Esterase Urine RBC Urine WBC Ur Squamous Epith Cells Urine Bacteria Hyaline Casts COVID-19 ([facility]) COVID-19 Clin Com Monoscreen Negative Influenza Type A (PCR) NEGATIVE Influenza Type B (PCR) NEGATIVE RSV RNA Qual (PCR) NEGATIVE SARS-CoV-2 RNA (RT-PCR) NEGATIVE 01/10/22 16:31 MCV MCH MCHC RDW Plt Count MPV Immature Gran % (Auto) Neut % (Auto) Lymph % (Auto) [place] % (Auto) Eos % (Auto) Baso % (Auto) Lymph # (Auto) [place] # (Auto) Eos # (Auto) Baso # (Auto) Abs Immat Gran (auto) Absolute Neuts (auto) Absolute Nucleated RBC Nucleated RBC % (auto) Smear Tech's Comments Anion Gap Estim Creat Clear Calc Estimated GFR Random Glucose Lactic Acid Calcium Total Bilirubin Direct Bilirubin AST ALT Alkaline Phosphatase Total Protein Albumin Beta HCG, Quant Urine Color Yellow Urine Appearance Clear Urine pH 5.5 Ur Specific [place] 1.025 Urine Protein Trace Urine Glucose (UA) Negative Urine Ketones Trace Urine Blood Negative Urine Nitrite Negative Ur Leukocyte Esterase Moderate (2+) H Urine RBC 0-2 Urine WBC 6-10 H Ur Squamous Epith Cells 3-5 Urine Bacteria 4+ Hyaline Casts 0-2 COVID-19 ([facility]) COVID-19 Clin Com Monoscreen Influenza Type A (PCR) Influenza Type B (PCR) RSV RNA Qual (PCR) SARS-CoV-2 RNA (RT-PCR) Imaging Radiologist's Impressions: Impressions Chest X-Ray 01/10/22 12:12 IMPRESSION: Unremarkable chest examination. Abdomen/Pelvis CT 01/10/22 17:04 IMPRESSION: 1. Wedge-shaped area of hyperenhancement/hyperperfusion in the lower pole of the right kidney with small low-density cortical foci and mild perinephric stranding. Appearance is compatible with acute focal pyelonephritis/acute lobar nephronia. No large well-formed abscess identified. The small low-density foci could represent early developing abscess formation. Correlate with urinalysis. Assessment and Plan (1) Pyelonephritis: Status: Acute (2) Sepsis: Status: Acute Plan Patient with history nephrolithiasis and tobacco dependence admitted for pyelonephritis with sepsis. 1- Acute Pyelonephritis -CT abd/pelvis showed wedge shaped area of hyperenhancement/hyperperfusion in the lower pole of the right kidney with small low-density cortical foci and mild perinephric stranding. Appearance compatible with acute focal pyelonephritis/acute lobal nephronia. No large well-formed abscess identified. The small low-density foci could represent early developing abscess formation. Correlate with UA. -UA with 2+ leuks, 4+ bacteria, negative blood, neg nitrites. UC pending. -Renal function normal. -Received 750mg in ED. Initiate zosyn 4.5mg q6h due to sepsis with possible early abscess formation right kidney -Urology consulted -Oxycodone and dilaudid prn with pain scale -Ondansetron prn nausea -Continue IVF -Regular diet -Tylenol prn fever -Repeat cbc and bmp am 2-Sepsis- secondary to pyelonephritis -Leukocytosis 15.5 with tchycardia of 135. Normal lactic acid -Zosyn and IVF as above 3-Chronic microcytic anemia- likely iron deficiency -Iron studies ordered 4-Tobacco dependence- vapes nicotine -Nicorette prn DVT prophylaxis- lovenox Full code COVID-19 negative. [employer] vaccine x2, not boosted Patient requires inpt stay of at least 2 midnights due to pyelonephritis with sepsis requiring IVF and IV abx as well as further monitoring. Quality Stroke Does the patient have a stroke diagnosis?: No VTE Prior VTE?: No VTE Risk Level:: Medical - moderate - high VTE Device Contraindication: Treatment Not Indicated VTE Drug Contraindication: N/A - Med Ordered
--- NOTE | 2022-01-10 18:13 | PM.EVENT ---
Event Note Date of Service: 01/10/22 Event Note: This patient is seen and examined with APC. Lab imaging reviewed. patient elevated WBC count, tachycardic, also have right flank pain- wanted duration. ct abd: 1. Wedge-shaped area of hyperenhancement/hyperperfusion in the lower pole of the right kidney with small low-density cortical foci and mild perinephric stranding. Appearance is compatible with acute focal pyelonephritis/acute lobar nephronia. No large well-formed abscess identified. The small low-density foci could represent early developing abscess formation. Physical exam : Appearance: Alert.? Oriented X3.? not in distress.? cvs:tachycardic, [id number] . res: clear to auscultation ,no rhonchii or wheezing abd: no rebound or guarding ,diffuse abd pain , bs present,soft left cva>RIGHT cva tenderness . ext pulses present , no cyanosis. neuro: axo3 , nonfocal. assessment and plan coordinated in APCs note, Agree with the plan in addition: sepsis sec to uti Blood cultures sent, IV antibiotics, added urine culture. Urology evaluation.
--- NOTE | 2022-01-10 18:16 | PHA.MEDREC ---
Pharmacy Consult ? Medication Reconciliation Pharmacy has completed the medication reconciliation. Spoke with patient in ED
[2022-01-10 19:00] LABS: Iron 17 mcg/dL (30-160); Percent Iron Saturation 6 % (15-50); Total Iron Binding Capacity 292 mcg/dL (228-428); Unsaturated Iron Binding 275 ug/dL
[2022-01-10 19:21] LABS: Ferritin 30 ng/mL (10-122)
[2022-01-10] MEDS: Ondansetron ODT 4 MG TAB.RAPDIS TRANSLINGU (20:03)
[2022-01-10 20:04] VITALS: RESP 20
[2022-01-10] MEDS: Tamsulosin HCL 0.4 MG CAPSULE PO (20:04)
[2022-01-10] MEDS: HYDROmorphone HCl 1 MG/ML SYRINGE 0.5 MG IVPUSH ×2 (20:04→23:00)
[2022-01-10] MEDS: Enoxaparin Sodium 40 MG/0.4 ML SYRINGE SUBCUT (20:05)
[2022-01-10] MEDS: Piperacillin Sodium/Tazobactam 4.5 GM in 0.9 % Sodium Chloride 100 ML IV (20:05)
--- NOTE | 2022-01-10 22:37 | MHC.CM.PN ---
CM met with admitted patient with bed assignment pending. Lives with boyfriend, Baudilio Rosa ([phone]). No HCP-declines at this time. [employer] x2. Has PCP in [place], cannot remember the name. Is employed. D/C plan: Home without services. Boyfriend to transport home. CM to follow for d/c needs.
[2022-01-10] MEDS: oxyCODONE HCl Immed Release 5 MG TABLET PO (23:00)
[2022-01-10 23:40] LABS: Lactic Acid 1.2 mmol/L (0.5-2.0)
[2022-01-11] VITALS (29 sets, daily range): BP systolic 81–143; BP diastolic 35–61; PULSE 84–126; RESP 12–26; TEMP 36.4–39.3; O2SAT 91–100; BMI 26.7
[2022-01-11] MEDS: Piperacillin Sodium/Tazobactam 4.5 GM in 0.9 % Sodium Chloride 100 ML IV ×4 (03:01→18:32)
[2022-01-11] MEDS: Lactated Ringers 1,000 ML 999 ML IV (04:45)
--- NOTE | 2022-01-11 04:49 | PC.NURSE ---
I assumed care of Rebecca at 1900. Since that time she has been alert and oriented x 3, drowsy, resting in bed with s/o at the bedside. She has remained calm and cooperative, makes eye contact with RN and is able to verbalize her needs adequately. Since I assumed care Rebecca has had an episode of fever of 101.2 with corresponding tachycardia (STach 130's), severe B/L flank pain, and BP of 90's/50's. Deric HASSAN was notified and pt was given 1L LR bolus per request Kavon HASSAN, PO Oxycodone (per PRN orders), IVP Dilaudid (Per PRN orders), PO Tylenol (per PRN orders). She stated the severe flank pain decreased from a 10 to a 9/10. deric HASSAN notified and she requested pt receive Toradol 15mg IVp (which I obtained via override per her request). This helped the pt and her pain decreased to a 5/10. However throughout the remainder of the night her BP has remained in this high 80's/40's-50's. Deric HASSAN has been updated on these BP's and has requested a second 1L LR bolus. This is being administered. pt remains oriented x 3. SHe is ambulatory with steady gait to and from the bathroom across from room 3 and back to bed 3. She has voided multiple times since I assumed care, hwoever we have not measured I&O's. She complains of lightheadedness while resting in bed. Again, hospitalist aware. Pt also states that her BP is chronically low, but she is unsure how low. We will continue to monitor rebecca.
[2022-01-11] MEDS: HYDROmorphone HCl 1 MG/ML SYRINGE 0.5 MG IVPUSH ×4 (06:42→21:13)
[2022-01-11 07:12] LABS: Mean Corpuscular HGB Conc 32.1 g/dl (31.0-35.0); Mean Corpuscular Hemoglobin 21.7 pg (27.0-33.0); Mean Corpuscular Volume 67.6 fL (80.0-98.0); Mean Platelet Volume 10.7 fL (9.4-12.3); Platelet Count 192 X10*3/uL (160-400); Red Blood Count 4.14 X10*6/uL (4.20-5.50); Red Cell Distribution Width 16.4 % (11.0-16.0); White Blood Count 23.4 X10*3/uL (4.8-10.8)
[2022-01-11 07:44] LABS: Anion Gap 16 (12-20); Blood Urea Nitrogen 17 mg/dL (9-16); Calcium 7.8 mg/dL (8.4-10.2); Carbon Dioxide 20 mmol/L (22-29); Chloride 104 mmol/L (96-108); Creatinine Clr Calc Pharmacy 97.7; Estimated Glomerular Filt Rate > 60; Glucose Random 92 mg/dL (60-115); Potassium 3.8 mmol/L (3.3-5.1); Sodium 136 mmol/L (135-145)
[2022-01-11] MEDS: Acetaminophen 325 MG TABLET 650 MG PO ×2 (07:47→15:49)
[2022-01-11] MEDS: 0.9 % Sodium Chloride Flush 3 ML SYRINGE IVFLUSH ×2 (07:52→23:36)
[2022-01-11] MEDS: oxyCODONE HCl Immed Release 5 MG TABLET PO ×2 (08:42→16:12)
[2022-01-11] MEDS: Ondansetron ODT 4 MG TAB.RAPDIS TRANSLINGU ×2 (08:42→16:11)
[2022-01-11] MEDS: 0.9 % Sodium Chloride 1,000 ML 999 ML IVCONT (09:53)
--- NOTE | 2022-01-11 11:19 | P.PNIM_ITS ---
Subjective Subjective Date of Service: 01/11/22 Interval History: sepsis /uti Review of Systems Still has significant right-sided flank pain , also feel lightheadedness. no fevers Physical Exam Vital Signs: Vital Signs: Last Vital Signs Temp 98.1 F 01/11/22 09:55 Pulse 88 01/11/22 09:55 Resp 19 01/11/22 09:55 BP 88/50 L 01/11/22 09:55 Pulse Ox 98 01/11/22 09:55 O2 Del Method 01/11/22 09:55 BMI result Body Mass Index 24.7 Alert.? Oriented X3.? not in distress.? cvs:tachycardic, [id number] . res: clear to auscultation ,no rhonchii or wheezing abd: no rebound or guarding ,diffuse abd pain , bs present,soft left Right sided cva tenderness mostly. ext pulses present , no cyanosis. neuro: axo3 , nonfocal. Objective Data Active Medications Acetaminophen (Acetaminophen 325 Mg Tablet) 650 mg PO Q6H PRN PRN Reason: Fever Last Admin: 01/11/22 07:47 Dose: 650 mg Documented By: REY Enoxaparin Sodium (Enoxaparin Sodium 40 Mg/0.4 Ml Syringe) 40 mg SUBCUT Q24H FERMIN Last Admin: 01/10/22 20:05 Dose: 40 mg Documented By: JAMIA Hydromorphone HCl (Hydromorphone Hcl 1 Mg/Ml Syringe) 0.5 mg IVPUSH Q3H PRN; Protocol PRN Reason: Pain, Severe (Pain Scale 7-10) Last Admin: 01/11/22 06:42 Dose: 0.5 mg Documented By: JEFF Piperacillin Sod/Tazobactam (Sod 4.5 gm/ Sodium Chloride) 100 mls @ 200 mls/hr IV Q6H FERMIN Last Admin: 01/11/22 07:03 Dose: 200 mls/hr Documented By: JEFF Sodium Chloride (Ns) 1,000 mls @ 999 mls/hr IVCONT .Q1H1M FERMIN Stop: 01/11/22 11:45 Last Admin: 01/11/22 09:53 Dose: 999 mls/hr Documented By: REY Nicotine Polacrilex (Nicotine Polacrilex 2 Mg Gum) 2 mg BUCCAL Q2H PRN PRN Reason: Nicotine Cravings Ondansetron HCl (Ondansetron Odt 4 Mg Tab.Rapdis) 4 mg TRANSLINGU Q6H PRN PRN Reason: Nausea and Vomiting Last Admin: 01/11/22 08:42 Dose: 4 mg Documented By: REY Oxycodone HCl (Oxycodone Hcl Immed Release 5 Mg Tablet) 5 mg PO Q6H PRN PRN Reason: Pain, Moderate (Pain Scale 4-6 Last Admin: 01/11/22 08:42 Dose: 5 mg Documented By: REY Pharmacy Consult (Consult Rx Perform Med Rec) 1 each MISCELLANE ONCE PRN PRN Reason: Consult order Sodium Chloride (0.9 % Sodium Chloride Flush 3 Ml Syringe) 3 ml IVFLUSH QSHIFT [facility] Last Admin: 01/11/22 07:52 Dose: 3 ml Documented By: REY Labs CBC & Chem 7: 01/11/22 06:44 01/11/22 06:44 Labs: Laboratory Results - last 24 hr 01/10/22 01/10/22 01/10/22 11:58 12:03 12:03 MCV 67.4 L MCH 21.2 L MCHC 31.5 RDW 15.9 Plt Count 240 MPV 10.3 Immature Gran % (Auto) 0.5 H Neut % (Auto) 90.7 H Lymph % (Auto) 5.0 L [place] % (Auto) 3.5 Eos % (Auto) 0.0 Baso % (Auto) 0.3 Lymph # (Auto) 0.8 L [place] # (Auto) 0.5 Eos # (Auto) 0.0 Baso # (Auto) 0.0 Abs Immat Gran (auto) 0.08 H Absolute Neuts (auto) 14.0 H Absolute Nucleated RBC 0.000 Nucleated RBC % (auto) 0.0 Smear Tech's Comments VERIFIED Anion Gap 15 Estim Creat Clear Calc 100.2 Estimated GFR > 60 Random Glucose 101 Lactic Acid Calcium 8.8 Iron 17 L TIBC 292 % Saturation 6 L Unsat Iron Binding 275 Ferritin 30 Total Bilirubin 0.6 Direct Bilirubin 0.3 AST 20 D ALT 9 Alkaline Phosphatase 46 D Total Protein 7.2 Albumin 4.3 Beta HCG, Quant < 2 Urine Color Urine Appearance Urine pH Ur Specific [place] Urine Protein Urine Glucose (UA) Urine Ketones Urine Blood Urine Nitrite Ur Leukocyte Esterase Urine RBC Urine WBC Ur Squamous Epith Cells Urine Bacteria Hyaline Casts COVID-19 ([facility]) Negative COVID-19 Clin Com See Note Monoscreen Influenza Type A (PCR) Influenza Type B (PCR) RSV RNA Qual (PCR) SARS-CoV-2 RNA (RT-PCR) 01/10/22 01/10/22 01/10/22 16:30 16:30 16:30 MCV MCH MCHC RDW Plt Count MPV Immature Gran % (Auto) Neut % (Auto) Lymph % (Auto) [place] % (Auto) Eos % (Auto) Baso % (Auto) Lymph # (Auto) [place] # (Auto) Eos # (Auto) Baso # (Auto) Abs Immat Gran (auto) Absolute Neuts (auto) Absolute Nucleated RBC Nucleated RBC % (auto) Smear Tech's Comments Anion Gap Estim Creat Clear Calc Estimated GFR Random Glucose Lactic Acid 1.4 Calcium Iron TIBC % Saturation Unsat Iron Binding Ferritin Total Bilirubin Direct Bilirubin AST ALT Alkaline Phosphatase Total Protein Albumin Beta HCG, Quant Urine Color Urine Appearance Urine pH Ur Specific [place] Urine Protein Urine Glucose (UA) Urine Ketones Urine Blood Urine Nitrite Ur Leukocyte Esterase Urine RBC Urine WBC Ur Squamous Epith Cells Urine Bacteria Hyaline Casts COVID-19 ([facility]) COVID-19 Clin Com Monoscreen Negative Influenza Type A (PCR) NEGATIVE Influenza Type B (PCR) NEGATIVE RSV RNA Qual (PCR) NEGATIVE SARS-CoV-2 RNA (RT-PCR) NEGATIVE 01/10/22 01/10/22 01/11/22 16:31 22:59 06:44 MCV 67.6 L MCH 21.7 L MCHC 32.1 RDW 16.4 H Plt Count 192 MPV 10.7 Immature Gran % (Auto) Neut % (Auto) Lymph % (Auto) [place] % (Auto) Eos % (Auto) Baso % (Auto) Lymph # (Auto) [place] # (Auto) Eos # (Auto) Baso # (Auto) Abs Immat Gran (auto) Absolute Neuts (auto) Absolute Nucleated RBC 0.000 Nucleated RBC % (auto) 0.0 Smear Tech's Comments Anion Gap Estim Creat Clear Calc Estimated GFR Random Glucose Lactic Acid 1.2 Calcium Iron TIBC % Saturation Unsat Iron Binding Ferritin Total Bilirubin Direct Bilirubin AST ALT Alkaline Phosphatase Total Protein Albumin Beta HCG, Quant Urine Color Yellow Urine Appearance Clear Urine pH 5.5 Ur Specific [place] 1.025 Urine Protein Trace Urine Glucose (UA) Negative Urine Ketones Trace Urine Blood Negative Urine Nitrite Negative Ur Leukocyte Esterase Moderate (2+) H Urine RBC 0-2 Urine WBC 6-10 H Ur Squamous Epith Cells 3-5 Urine Bacteria 4+ Hyaline Casts 0-2 COVID-19 ([facility]) COVID-19 Clin Com Monoscreen Influenza Type A (PCR) Influenza Type B (PCR) RSV RNA Qual (PCR) SARS-CoV-2 RNA (RT-PCR) 01/11/22 06:44 MCV MCH MCHC RDW Plt Count MPV Immature Gran % (Auto) Neut % (Auto) Lymph % (Auto) [place] % (Auto) Eos % (Auto) Baso % (Auto) Lymph # (Auto) [place] # (Auto) Eos # (Auto) Baso # (Auto) Abs Immat Gran (auto) Absolute Neuts (auto) Absolute Nucleated RBC Nucleated RBC % (auto) Smear Tech's Comments Anion Gap 16 Estim Creat Clear Calc 97.7 Estimated GFR > 60 Random Glucose 92 Lactic Acid Calcium 7.8 L D Iron TIBC % Saturation Unsat Iron Binding Ferritin Total Bilirubin Direct Bilirubin AST ALT Alkaline Phosphatase Total Protein Albumin Beta HCG, Quant Urine Color Urine Appearance Urine pH Ur Specific [place] Urine Protein Urine Glucose (UA) Urine Ketones Urine Blood Urine Nitrite Ur Leukocyte Esterase Urine RBC Urine WBC Ur Squamous Epith Cells Urine Bacteria Hyaline Casts COVID-19 ([facility]) COVID-19 Clin Com Monoscreen Influenza Type A (PCR) Influenza Type B (PCR) RSV RNA Qual (PCR) SARS-CoV-2 RNA (RT-PCR) Microbiology Microbiology Results: Microbiology 01/10/22 17:00 Blood Culture - Preliminary Blood - Venous Prelim: GNR Gram Stain only 01/10/22 16:30 Blood Culture - Preliminary Blood - Venous Prelim: GNR Gram Stain only Assessment and Plan (1) Sepsis: Status: Acute (2) Pyelonephritis: Status: Acute Plan 26 y/o F nephrolithiasis and tobacco dependence admitted for pyelonephritis with sepsis. 1-spesis sec to Acute Pyelonephritis elevated leukocytosis trending up.no fevers , tachycardia seems improvin -CT abd/pelvis showed wedge shaped area of hyperenhancement/hyperperfusion in the lower pole of the right kidney with small low-density cortical foci and mild perinephric stranding. Appearance compatible with acute focal pyelonephritis/acu te lobal nephronia. No large well-formed abscess identified. The small low- density foci could represent early developing abscess formation. Correlate with UA. -UA with 2+ leuks, 4+ bacteria, negative blood, neg nitrites. UC pending,blood cultures pending Initiate zosyn 4.5mg q6h due to sepsis with possible early abscess formation right kidney -Oxycodone and dilaudid prn with pain scale,Ondansetron prn nausea,Continue IVF -Regular diet -Tylenol prn fever urology eval and Id eval. 2-Sepsis- secondary to pyelonephritis -Leukocytosis 23.4 ,tachycardia improving, Normal lactic acidx2 (since admis zuri) -Zosyn and IVF as above. 3-Chronic microcytic anemia- likely iron deficiency -Iron studies ordered 4-Tobacco dependence- vapes nicotine -Nicorette prn 5.boderline blood pressure -flactauting,added ivf . DVT prophylaxis- lovenox Full code COVID-19 negative. Pfizer vaccine x2, not boosted. Discussed with ICU- due to continuously fluctuating borderline blood pressure even after giving IV fluids, also has sepsis secondary to UTI- patient may benefit from critical care monitoring. need for inpatient: sepsis secondary to UTI requiring IV antibiotics, borderline blood pressure: required IV fluid. Quality Stroke Does the patient have a stroke diagnosis?: No VTE Prior VTE?: No VTE Risk Level:: Medical - moderate - high VTE Device Contraindication: Treatment Not Indicated VTE Drug Contraindication: N/A - Med Ordered
--- NOTE | 2022-01-11 11:20 | PC.NURSE ---
Mother's number from [place]:
--- NOTE | 2022-01-11 11:36 | PC.NURSE ---
10:54 BP: 87/50 [phone] BP:110/84 IVF running. Plan to tx to ICU
[2022-01-11 12:14] LABS: Albumin Level 3.3 g/dL (3.5-5.0)
--- NOTE | 2022-01-11 12:44 | PM.CCPN ---
Subjective Subjective Date of Service: 01/11/22 Interval History: 26-year-old lady with underlying history of kidney stones admitted on 01/10/2022 with gram-negative bacteremia with urinary source. Hospital course complicated by recurrent episodes of hypotension with poor response to initial crystalloid resuscitation. Patient empirically covered with broad-spectrum antibiotics and transferred to intensive care unit for possible vasopressor support. Critical Care Time (minutes): 0 Physical Exam Vital Signs: Vital Signs: Last Vital Signs Temp 102.8 F H 01/11/22 12:00 Pulse 122 H 01/11/22 12:00 Resp 24 H 01/11/22 12:12 BP 143/41 H 01/11/22 12:00 Pulse Ox 97 01/11/22 12:00 O2 Del Method 01/11/22 12:00 BMI result Body Mass Index 26.7 Const: General: no acute distress, alert and awake Eyes: Sclerae: sclerae normal EOM: EOMs intact bilaterally Neck: Neck: Yes no lymphadenopathy, Yes trachea midline and Yes supple Resp: Effort & Inspection: normal respiratory effort and no respiratory distress Auscultation: clear to auscultation bilaterally Cardio: Rate: regular rate Rhythm: regular rhythm Heart sounds: no gallops, no murmurs and no rubs GI: Inspection: Yes other Palpation (GI): Soft to palpation and Other GI palpation findings present (Right CVA tenderness) Auscultation: normal bowel sounds Extrem: General: Yes no pedal edema, No clubbing and No cyanosis Objective Data Labs CBC & Chem 7: 01/11/22 06:44 01/11/22 06:44 Labs: Laboratory Results - last 24 hr 01/10/22 01/10/22 01/10/22 12:03 12:03 16:30 WBC RBC Hgb Hct MCV MCH MCHC RDW Plt Count MPV Absolute Nucleated RBC Nucleated RBC % (auto) Smear Tech's Comments VERIFIED Sodium Potassium Chloride Carbon Dioxide Anion Gap BUN Creatinine Estim Creat Clear Calc Estimated GFR Random Glucose Lactic Acid Calcium Iron 17 L TIBC 292 % Saturation 6 L Unsat Iron Binding 275 Ferritin 30 Total Bilirubin 0.6 Direct Bilirubin 0.3 AST 20 D ALT 9 Alkaline Phosphatase 46 D Total Protein 7.2 Albumin 4.3 Beta HCG, Quant < 2 Urine Color Urine Appearance Urine pH Ur Specific [place] Urine Protein Urine Glucose (UA) Urine Ketones Urine Blood Urine Nitrite Ur Leukocyte Esterase Urine RBC Urine WBC Ur Squamous Epith Cells Urine Bacteria Hyaline Casts Monoscreen Influenza Type A (PCR) NEGATIVE Influenza Type B (PCR) NEGATIVE RSV RNA Qual (PCR) NEGATIVE SARS-CoV-2 RNA (RT-PCR) NEGATIVE 01/10/22 01/10/22 01/10/22 16:30 16:30 16:31 WBC RBC Hgb Hct MCV MCH MCHC RDW Plt Count MPV Absolute Nucleated RBC Nucleated RBC % (auto) Smear Tech's Comments Sodium Potassium Chloride Carbon Dioxide Anion Gap BUN Creatinine Estim Creat Clear Calc Estimated GFR Random Glucose Lactic Acid 1.4 Calcium Iron TIBC % Saturation Unsat Iron Binding Ferritin Total Bilirubin Direct Bilirubin AST ALT Alkaline Phosphatase Total Protein Albumin Beta HCG, Quant Urine Color Yellow Urine Appearance Clear Urine pH 5.5 Ur Specific [place] 1.025 Urine Protein Trace Urine Glucose (UA) Negative Urine Ketones Trace Urine Blood Negative Urine Nitrite Negative Ur Leukocyte Esterase Moderate (2+) H Urine RBC 0-2 Urine WBC 6-10 H Ur Squamous Epith Cells 3-5 Urine Bacteria 4+ Hyaline Casts 0-2 Monoscreen Negative Influenza Type A (PCR) Influenza Type B (PCR) RSV RNA Qual (PCR) SARS-CoV-2 RNA (RT-PCR) 01/10/22 01/11/22 01/11/22 22:59 06:44 06:44 WBC 23.4 H RBC 4.14 L Hgb 9.0 L Hct 28.0 L MCV 67.6 L MCH 21.7 L MCHC 32.1 RDW 16.4 H Plt Count 192 MPV 10.7 Absolute Nucleated RBC 0.000 Nucleated RBC % (auto) 0.0 Smear Tech's Comments Sodium 136 Potassium 3.8 Chloride 104 Carbon Dioxide 20 L Anion Gap 16 BUN 17 H Creatinine 0.79 Estim Creat Clear Calc 97.7 Estimated GFR > 60 Random Glucose 92 Lactic Acid 1.2 Calcium 7.8 L D Iron TIBC % Saturation Unsat Iron Binding Ferritin Total Bilirubin Direct Bilirubin AST ALT Alkaline Phosphatase Total Protein Albumin 3.3 L D Beta HCG, Quant Urine Color Urine Appearance Urine pH Ur Specific [place] Urine Protein Urine Glucose (UA) Urine Ketones Urine Blood Urine Nitrite Ur Leukocyte Esterase Urine RBC Urine WBC Ur Squamous Epith Cells Urine Bacteria Hyaline Casts Monoscreen Influenza Type A (PCR) Influenza Type B (PCR) RSV RNA Qual (PCR) SARS-CoV-2 RNA (RT-PCR) Microbiology Microbiology Results: Microbiology 01/10/22 17:00 Blood - Venous Blood Culture - Preliminary Prelim: GNR Gram Stain only 01/10/22 16:30 Blood - Venous Blood Culture - Preliminary Prelim: GNR Gram Stain only Progress Note: A&P Assessment and plan (1) Gram-negative bacteremia: Status: Acute (2) Pyelonephritis: Status: Acute Plan Assessment: 26-year-old lady admitted with gram-negative bacteremia with pyelonephritis as a source requiring close monitoring secondary to recurrent episodes of hypotension Plan: Neuro: No acute issues. Cardiac: No acute issues. Pulmonary: No acute issues. Renal: Pyelonephritis. Continue to monitor urine output and renal indices. No evidence of hydronephrosis. Endo: No acute issues. GI: No acute issues. ID: Gram-negative bacteremia with source, empirically covered with broad-spectrum antibiotics. Cultures are pending. Heme/Onc: No acute issues. Psych: No acute issues. Miscellaneous: No acute issues. Prophylaxis: Lovenox Diet: Regular Quality Stroke Does the patient have a stroke diagnosis?: No VTE Prior VTE?: No VTE Risk Level:: Medical - moderate - high VTE Device Contraindication: Treatment Not Indicated VTE Drug Contraindication: N/A - Med Ordered
[2022-01-11] MEDS: Albumin Human 25 % 100 ML IV ×2 (13:52→20:17)
--- NOTE | 2022-01-11 15:22 | PM.SEPBOLA3 ---
Sepsis Bolus Exclusion Sepsis Bolus Exclusion Date of Occurrence: 01/11/22 This patient met severe sepsis criteria due to the following condition(s):: Hypotension In my clinical judgement the administration of 30 ml/kg of crystalloid would be detrimental to this patient due to the patient's following conditions:: Concern for fluid overload Replace the 30 mls/kg with (*zero amount not acceptable): *Note: One of the jamison must be documented Crystalloids amount given in mls: (rate must be at least 150cc/hr): 999 (1000cc at 999cc per hour given at 9:53a.m.) Colloids amount given in mls:: 1,000
[2022-01-11 15:24] LABS: Lactic Acid 2.5 mmol/L (0.5-2.0)
--- NOTE | 2022-01-11 16:36 | PC.NURSE ---
ADMITTED TO ICU AT 1200. TEMP 102.8, RECHECKED FOR 102.5 AND TYLENOL GIVEN - EFFECTS PENDING. HR 110-120S. SBP 80-90S. MD AWARE. PAIN 8-10/10 FOR LOWER BACK AND HEADACHE - MINIMAL TO NO EFFECT POST PAIN MEDICATION ADMINISTRATION - SEE EMAR. ONCE NS BOLUS COMPLETED AND ALBUMIN IV X 1 DOSE - LEVOPHED GTT ORDERED AND ADMINISTERED AT 1547 FOR FURTHER SUPPORT TO MAINTAIN MAP > 60 PER MD. PATIENT DENIED THE FEELING OF HAVING TO VOID POST IV BOLUS. BLADDER SCANNED FOR 336 ML. ENCOURAGED TO USE BEDSIDE COMMODE - SUCCESSFULLY VOIDED 900 ML CLOUDY, YELLOW URINE - MD NOTIFIED. PATIENT VOMITTED X 1 (100 ML, YELLOW BILE) POST PO PAIN AND NAUSEA MEDICATION ADMINISTRATION.
[2022-01-11 16:56] LABS: Reflex Lactate? Lactic Acid Added
[2022-01-11 17:57] LABS: ~Lactic Acid-LAB USE ONLY 2.2 mmol/L (0.5-2.0)
[2022-01-11 19:42] LABS: Reflex Lactate? 2 Y
[2022-01-11] MEDS: Enoxaparin Sodium 40 MG/0.4 ML SYRINGE SUBCUT (20:19)
[2022-01-11] MEDS: Acetaminophen Supp 325 MG SUPP.RECT 650 MG PR (20:32)
[2022-01-11 20:47] LABS: ~Lactic Acid-LAB USE ONLY 2.5 mmol/L (0.5-2.0)
[2022-01-12] VITALS (27 sets, daily range): BP systolic 94–121; BP diastolic 50–78; PULSE 63–118; RESP 15–32; TEMP 36.6–38; O2SAT 89–98; BMI 27.1
[2022-01-12] MEDS: Piperacillin Sodium/Tazobactam 4.5 GM in 0.9 % Sodium Chloride 100 ML IV ×4 (00:21→18:17)
[2022-01-12] MEDS: Albumin Human 25 % 100 ML IV ×2 (00:27→07:38)
[2022-01-12] MEDS: HYDROmorphone HCl 1 MG/ML SYRINGE 0.5 MG IVPUSH ×7 (01:52→21:40)
[2022-01-12] MEDS: ondansetron HCL 4 MG/2 ML VIAL IVPUSH (04:47)
[2022-01-12 05:33] LABS: VBG Base Excess -5.7 mmol/L; VBG HCO3 17 mmol/L (22-26); VBG pCO2 27 mmHg; VBG pH 7.41 (7.32-7.43); VBG pO2 47 mmHg
[2022-01-12 05:36] LABS: Hematocrit 24.6 % (37.0-47.0); Hemoglobin 8.1 g/dl (12.0-16.0); Mean Corpuscular HGB Conc 32.9 g/dl (31.0-35.0); Mean Corpuscular Hemoglobin 22.1 pg (27.0-33.0); Mean Platelet Volume 10.9 fL (9.4-12.3); Platelet Count 158 X10*3/uL (160-400); Red Blood Count 3.67 X10*6/uL (4.20-5.50); Red Cell Distribution Width 16.2 % (11.0-16.0); White Blood Count 19.2 X10*3/uL (4.8-10.8)
[2022-01-12 05:50] LABS: Albumin Level 3.9 g/dL (3.5-5.0); Anion Gap 16 (12-20); Blood Urea Nitrogen 13 mg/dL (9-16); Calcium 8.1 mg/dL (8.4-10.2); Carbon Dioxide 21 mmol/L (22-29); Chloride 105 mmol/L (96-108); Creatinine Clr Calc Pharmacy 115.9; Estimated Glomerular Filt Rate > 60; Glucose Random 95 mg/dL (60-115); Magnesium 1.6 mg/dL (1.6-2.6); Phosphorus 2.8 mg/dL (2.7-4.5); Potassium 3.1 mmol/L (3.3-5.1); Sodium 139 mmol/L (135-145)
[2022-01-12 05:56] LABS: Band Neutrophils Percent 12 % (3-5); Lymphocytes Absolute Manual 1.3 X10*3/uL (1.2-4.9); Lymphocytes Percent Manual 7 % (20-40); Monocytes Absolute Manual 0.2 X10*3/uL (0.1-1.2); Monocytes Percent Manual 1 % (2-11); Neutrophils Absolute Manual 17.7 X10*3/uL (2.0-8.3); Neutrophils Percent Manual 80 % (45-73)
[2022-01-12 05:57] LABS: Dohle Bodies PRESENT; Hypochromasia 1+ (5-14) /OIF; Microcytosis 2+ (15-30) /OIF; Platelet Estimate NORMAL (NORMAL); Platelet Morphology Comment NORMAL; Polychromasia 1+ (0-2) /OIF; RBC Morphology NOTED
[2022-01-12 07:06] LABS: Venous Blood Gas Refer to POC result
[2022-01-12] MEDS: 0.9 % Sodium Chloride Flush 3 ML SYRINGE IVFLUSH ×3 (07:40→19:59)
[2022-01-12] MEDS: Magnesium Sulfate/D5W 1 GM/100 ML PIGGYBACK IV (07:41)
[2022-01-12] MEDS: Potassium Chloride/H20 10 MEQ/100 ML PIGGYBACK 100 MEQ IV ×4 (08:28→11:26)
--- NOTE | 2022-01-12 09:20 | P.CDIC_ITS ---
CDI Concurrent Query Documentation Clarification: PHYSICIAN'S DOCUMENTATION REQUEST Date of Query: 01/12/22920 Patient Name: Sharon Guardado Admit Date: 01/10/22 Dear Doctor, A review of the medical record indicates additional documentation may be needed. Please review below and update the documentation accordingly. Clinical Indicators: Risk Factors/Clinical Indicators/Treatments PN 01/11 - Sepsis due to pyelonephritis ICU PN: Gram negative Bacteremia with urinary source. Hypotension poor response to initial crystalloid resuscitation. IV antibiotics, transferred to the ICU possible vasopressor support. BP 88/35 RR 26 HR 123 Event note 01/11: met severe sepsis criteria: Hypotension Please clarify which of the following most accurately describes the hypotension: * Severe sepsis due to (gram negative) pyelonephritis * Severe sepsis with Septic shock due to (gram negative) pyelonephritis * Systemic manifestations of infection, with 2 or more SIRS criteria which include: -Fever > 100.4F or hypothermia < 96.8 F -Leukocytosis - WBC > 12,000 or leukopenia, WBC < 4,000 or > 10% bands -Tachycardia > 90 beats/minute -Tachypnea - RR > 20 breaths/minute or PaCO2 < 32mmHg * Other etiology of hypotension * Unable to determine Use of terms such as suspected, likely, concern for, or probable (associated with a specific diagnosis that is being evaluated, monitored, or treated as if it exists) are acceptable and can be coded in the inpatient setting, when documented at the time of discharge. Thank you, Stefany Jennings [facility], [facility]IS Extension: [phone] Please use your independent medical judgment in providing your response. THIS QUERY IS PART OF THE PERMANENT MEDICAL RECORD Provider Response: Other ( Septic shock secondary to gram-negative pyelonephritis) Other Diagnosis: Septic shock secondary to gram-negative pyelonephritis
--- NOTE | 2022-01-12 10:59 | P.PNCC_ITS ---
Subjective Subjective Date of Service: 01/12/22 Interval History: 26-year-old lady with underlying history of kidney stones admitted on 01/10/2022 with gram-negative bacteremia with urinary source. Hospital course complicated by recurrent episodes of hypotension with poor response to initial crystalloid resuscitation. Patient empirically covered with broad-spectrum antibiotics and transferred to intensive care unit for possible vasopressor support. Patient required pressors overnight, however she has been titrated off since this morning. Critical Care Time (minutes): 30 Physical Exam Vital Signs: Vital Signs: Last Vital Signs Temp 98.9 F 01/12/22 08:00 Pulse 85 01/12/22 10:00 Resp 24 H 01/12/22 10:56 BP 108/51 L 01/12/22 10:00 Pulse Ox 96 01/12/22 10:00 O2 Del Method 01/12/22 10:00 O2 Flow Rate 2 01/12/22 10:00 BMI result Body Mass Index 27.1 Const: General: no acute distress, alert and awake Eyes: Sclerae: sclerae normal EOM: EOMs intact bilaterally Neck: Neck: Yes no lymphadenopathy, Yes trachea midline and Yes supple Resp: Effort & Inspection: normal respiratory effort and no respiratory distress Auscultation: clear to auscultation bilaterally Cardio: Rate: regular rate Rhythm: regular rhythm Heart sounds: no gallops, no murmurs and no rubs GI: Palpation (GI): Soft to palpation and Other GI palpation findings present ( Nontender) Auscultation: normal bowel sounds Extrem: General: Yes no pedal edema, No clubbing and No cyanosis Objective Data Labs CBC & Chem 7: 01/12/22 05:22 01/12/22 05:22 Labs: Laboratory Results - last 24 hr 01/11/22 01/11/22 01/11/22 06:44 14:37 17:38 WBC RBC Hgb Hct MCV MCH MCHC RDW Plt Count MPV Immature Gran % (Auto) Neut % (Auto) Lymph % (Auto) [place] % (Auto) Eos % (Auto) Baso % (Auto) Lymph # (Auto) [place] # (Auto) Eos # (Auto) Baso # (Auto) Abs Immat Gran (auto) Absolute Neuts (auto) Absolute Nucleated RBC Nucleated RBC % (auto) Neutrophils % (Manual) Band Neutrophils % Lymphocytes % (Manual) Monocytes % (Manual) Abs Neuts (Manual) Lymphocytes # (Manual) Monocytes # (Manual) Dohle Bodies Platelet Estimate Plt Morphology Comment RBC Morphology Polychromasia Hypochromasia Microcytosis VBG pH VBG pCO2 VBG pO2 VBG HCO3 VBG O2 Saturation VBG Base Excess Sodium Potassium Chloride Carbon Dioxide Anion Gap BUN Creatinine Estim Creat Clear Calc Estimated GFR Random Glucose Lactic Acid 2.5 H* Lactic Acid F/U @ 2Hr 2.2 H* Lactic Acid F/U @ 4Hr Calcium Phosphorus Magnesium Albumin 3.3 L D 01/11/22 01/12/22 01/12/22 20:20 05:22 05:22 WBC 19.2 H RBC 3.67 L Hgb 8.1 L Hct 24.6 L MCV 67.0 L MCH 22.1 L MCHC 32.9 RDW 16.2 H Plt Count 158 L MPV 10.9 Immature Gran % (Auto) Cancelled Neut % (Auto) Cancelled Lymph % (Auto) Cancelled [place] % (Auto) Cancelled Eos % (Auto) Cancelled Baso % (Auto) Cancelled Lymph # (Auto) Cancelled [place] # (Auto) Cancelled Eos # (Auto) Cancelled Baso # (Auto) Cancelled Abs Immat Gran (auto) Cancelled Absolute Neuts (auto) Cancelled Absolute Nucleated RBC 0.000 Nucleated RBC % (auto) 0.0 Neutrophils % (Manual) 80 H Band Neutrophils % 12 H Lymphocytes % (Manual) 7 L Monocytes % (Manual) 1 L Abs Neuts (Manual) 17.7 H Lymphocytes # (Manual) 1.3 Monocytes # (Manual) 0.2 Dohle Bodies PRESENT Platelet Estimate NORMAL Plt Morphology Comment NORMAL RBC Morphology NOTED Polychromasia 1+ (0-2) Hypochromasia 1+ (5-14) Microcytosis 2+ (15-30) VBG pH VBG pCO2 VBG pO2 VBG HCO3 VBG O2 Saturation VBG Base Excess Sodium 139 Potassium 3.1 L Chloride 105 Carbon Dioxide 21 L Anion Gap 16 BUN 13 Creatinine 0.72 Estim Creat Clear Calc 115.9 Estimated GFR > 60 Random Glucose 95 Lactic Acid Lactic Acid F/U @ 2Hr Lactic Acid F/U @ 4Hr 2.5 H* Calcium 8.1 L Phosphorus 2.8 Magnesium 1.6 Albumin 3.9 01/12/22 05:28 WBC RBC Hgb Hct MCV MCH MCHC RDW Plt Count MPV Immature Gran % (Auto) Neut % (Auto) Lymph % (Auto) [place] % (Auto) Eos % (Auto) Baso % (Auto) Lymph # (Auto) [place] # (Auto) Eos # (Auto) Baso # (Auto) Abs Immat Gran (auto) Absolute Neuts (auto) Absolute Nucleated RBC Nucleated RBC % (auto) Neutrophils % (Manual) Band Neutrophils % Lymphocytes % (Manual) Monocytes % (Manual) Abs Neuts (Manual) Lymphocytes # (Manual) Monocytes # (Manual) Dohle Bodies Platelet Estimate Plt Morphology Comment RBC Morphology Polychromasia Hypochromasia Microcytosis VBG pH 7.41 VBG pCO2 27 VBG pO2 47 VBG HCO3 17 L VBG O2 Saturation 79.0 VBG Base Excess -5.7 Sodium Potassium Chloride Carbon Dioxide Anion Gap BUN Creatinine Estim Creat Clear Calc Estimated GFR Random Glucose Lactic Acid Lactic Acid F/U @ 2Hr Lactic Acid F/U @ 4Hr Calcium Phosphorus Magnesium Albumin Microbiology Microbiology Results: Microbiology 01/11/22 00:18 Urine clean catch - Clean Catch Midstream Urine Culture - Preliminary Gram negative navin 01/10/22 17:00 Blood - Venous Blood Culture - Preliminary Gram negative navin 01/10/22 16:30 Blood - Venous Blood Culture - Preliminary Gram negative navin Progress Note: A&P Assessment and plan (1) Pyelonephritis: Status: Acute (2) Sepsis: Status: Acute (3) Gram-negative bacteremia: Status: Acute Plan Assessment: 26-year-old lady admitted with gram-negative bacteremia with pyelonephritis as a source requiring close monitoring secondary to recurrent episodes of hypotension Plan: Neuro: No acute issues. Cardiac: titrated off pressors. Pulmonary: No acute issues. Renal: Pyelonephritis. Continue to monitor urine output and renal indices. No evidence of hydronephrosis. Endo: No acute issues. GI: No acute issues. ID: Gram-negative bacteremia with source, empirically covered with broad- spectrum antibiotics. Cultures are pending. Heme/Onc: No acute issues. Psych: No acute issues. Miscellaneous: No acute issues. Prophylaxis: Lovenox Diet: Regular Quality Stroke Does the patient have a stroke diagnosis?: No VTE Prior VTE?: No VTE Risk Level:: Medical - moderate - high VTE Device Contraindication: Treatment Not Indicated VTE Drug Contraindication: N/A - Med Ordered
[2022-01-12] MEDS: Midazolam HCl/PF 2 MG/2 ML VIAL 0.5 MG IVPUSH ×2 (12:04→21:46)
[2022-01-12] MEDS: Acetaminophen 325 MG TABLET 650 MG PO ×2 (12:09→21:39)
[2022-01-12] MEDS: Potassium Chloride Packet 20 MEQ PACKET PO (15:16)
--- NOTE | 2022-01-12 15:47 | PM.EVENT ---
Event Note Date of Service: 01/12/22 Event Note: This patient is seen and examined with APC. Lab reviewed Leukocytosis improving,has hypokaelima blood pressure improved after fluid resuscitation, off pressors. Physical exam : Appearance: Alert.? Oriented X3.? not in distress.? cvs: rrr, [id number] , no murmur res: clear to auscultation ,no rhonchii or wheezing abd: no rebound or guarding , right flank pain , bs present. ext pulses present , no cyanosis. neuro: axo3 , nonfocal. assessment and plan coordinated in APCs note, Agree with the plan in addition: sepsis/gram neg bacteremia, hypokalemia will replete potassium continue iv antibiotics will add urology eval -for abnormal abd ct.
[2022-01-12] MEDS: Enoxaparin Sodium 40 MG/0.4 ML SYRINGE SUBCUT (18:17)
[2022-01-13] VITALS (8 sets, daily range): BP systolic 102–116; BP diastolic 50–70; PULSE 81–105; RESP 18–20; TEMP 36.1–38.1; O2SAT 92–97; BMI 27.3
[2022-01-13] MEDS: ondansetron HCL 4 MG/2 ML VIAL IVPUSH ×2 (01:20→20:54)
[2022-01-13] MEDS: Piperacillin Sodium/Tazobactam 4.5 GM in 0.9 % Sodium Chloride 100 ML IV ×4 (01:20→17:58)
[2022-01-13] MEDS: HYDROmorphone HCl 1 MG/ML SYRINGE 0.5 MG IVPUSH ×7 (01:36→23:48)
[2022-01-13] MEDS: Midazolam HCl/PF 2 MG/2 ML VIAL 0.5 MG IVPUSH (06:24)
[2022-01-13 07:43] LABS: Albumin Level 3.6 g/dL (3.5-5.0); Blood Urea Nitrogen 14 mg/dL (9-16); Calcium 8.3 mg/dL (8.4-10.2); Creatinine Clr Calc Pharmacy 125.1; Estimated Glomerular Filt Rate > 60; Glucose Random 67 mg/dL (60-115); Magnesium 1.9 mg/dL (1.6-2.6)
[2022-01-13 07:44] LABS: Basophils Absolute Auto 0.1 X10*3/uL (0.0-0.2); Basophils Percent Auto 0.6 % (0-2); Eosinophils Absolute Auto 0.1 X10*3/uL (0.0-0.4); Eosinophils Percent Auto 0.6 % (0-4); Hematocrit 26.8 % (37.0-47.0); Hemoglobin 8.8 g/dl (12.0-16.0); Imm Gran Abs Auto 0.14 X10*3/uL (0.00-0.03); Imm Gran Pct Auto 0.9 % (0.0-0.4); Lymphocytes Absolute Auto 1.2 X10*3/uL (1.2-4.9); Lymphocytes Percent Auto 8.1 % (20-40); MANUAL DIFF FLAG SCAN; Mean Corpuscular HGB Conc 32.8 g/dl (31.0-35.0); Mean Corpuscular Hemoglobin 21.7 pg (27.0-33.0); Monocytes Absolute Auto 0.7 X10*3/uL (0.1-1.2); Monocytes Percent Auto 4.8 % (2-11); Neutrophils Absolute Auto 12.7 x10*3/uL (2.0-8.3); PLT CLUMP 1; Red Blood Count 4.06 X10*6/uL (4.20-5.50); Red Cell Distribution Width 16.5 % (11.0-16.0); SCAN SMEAR FLAG 1
[2022-01-13 08:25] LABS: Anion Gap 23 (12-20); Carbon Dioxide 14 mmol/L (22-29); Chloride 106 mmol/L (96-108); Phosphorus 2.2 mg/dL (2.7-4.5); Potassium 4.5 mmol/L (3.3-5.1); Sodium 138 mmol/L (135-145)
[2022-01-13 08:29] LABS: Platelet Count 138 X10*3/uL (160-400)
[2022-01-13 08:31] LABS: SLIDE REVIEW VERIFIED
[2022-01-13] MEDS: Acetaminophen 325 MG TABLET 650 MG PO ×2 (08:44→14:57)
[2022-01-13] MEDS: 0.9 % Sodium Chloride Flush 3 ML SYRINGE IVFLUSH ×3 (08:44→20:55)
[2022-01-13 10:52] LABS: Amphetamine Screen Urine Not Detected (Not Detect); Barbiturates, Urine Not Detected (Not Detect); Benzodiazepines Screen Urine POSITIVE (Not Detect); Cannabinoid Screen Urine Not Detected (Not Detect); Cocaine Screen Urine Not Detected (Not Detect); Fentanyl, urine Not Detected (Not Detect); Opiate Screen Urine POSITIVE (Not Detect); Phencyclidine Screen Urine Not Detected (Not Detect)
--- NOTE | 2022-01-13 14:56 | P.PNIM_ITS ---
Subjective Subjective Date of Service: 01/13/22 Interval History: sepsis /uti, klebsella bacteremia Review of Systems Denies any shortness of breath or cough Says feeling better No fever, still has right-sided flank the Physical Exam Vital Signs: Vital Signs: Last Vital Signs Temp 98.4 F 01/13/22 11:48 Pulse 83 01/13/22 11:48 Resp 20 01/13/22 11:48 BP 102/61 01/13/22 11:48 Pulse Ox 95 01/13/22 11:48 O2 Del Method 01/13/22 11:48 O2 Flow Rate 2 01/13/22 11:48 BMI result Body Mass Index 27.3 Alert.? Oriented X3.? not in distress.? cvs:tachycardic, [id number] . res: fair air entry-diminshed at bases. abd: no rebound or guarding ,diffuse abd pain , bs present,soft left Right sided? cva tenderness mostly. ext pulses present , no cyanosis. neuro: axo3 , nonfocal. Objective Data Active Medications Acetaminophen (Acetaminophen 325 Mg Tablet) 650 mg PO Q6H PRN PRN Reason: Fever Last Admin: 01/13/22 08:44 Dose: 650 mg Documented By: ZHANE Enoxaparin Sodium (Enoxaparin Sodium 40 Mg/0.4 Ml Syringe) 40 mg SUBCUT Q24H [facility] Last Admin: 01/12/22 18:17 Dose: 40 mg Documented By: ASHOK Hydromorphone HCl (Hydromorphone Hcl 1 Mg/Ml Syringe) 0.5 mg IVPUSH Q3H PRN; Protocol PRN Reason: Pain, Severe (Pain Scale 7-10) Last Admin: 01/13/22 14:03 Dose: 0.5 mg Documented By: NELLI Piperacillin Sod/Tazobactam (Sod 4.5 gm/ Sodium Chloride) 100 mls @ 200 mls/hr IV Q6H [facility] Last Infusion: 01/13/22 13:13 Dose: 0 mls/hr Documented By: ZHANE Melatonin (Melatonin 3 Mg Tablet) 6 mg PO BEDTIME PRN PRN Reason: Sleep Midazolam HCl (Midazolam Hcl/Pf 2 Mg/2 Ml Vial) 0.5 mg IVPUSH Q4H PRN PRN Reason: anxiety Last Admin: 01/13/22 06:24 Dose: 0.5 mg Documented By: FRANCIS Nicotine Polacrilex (Nicotine Polacrilex 2 Mg Gum) 2 mg BUCCAL Q2H PRN PRN Reason: Nicotine Cravings Ondansetron HCl (Ondansetron Hcl 4 Mg/2 Ml Vial) 4 mg IVPUSH Q6H PRN PRN Reason: Nausea and Vomiting Last Admin: 01/13/22 01:20 Dose: 4 mg Documented By: FRANCIS Oxycodone HCl (Oxycodone Hcl Immed Release 5 Mg Tablet) 5 mg PO Q6H PRN PRN Reason: Pain, Moderate (Pain Scale 4-6 Last Admin: 01/11/22 16:12 Dose: 5 mg Documented By: ASHOK Pharmacy Consult (Consult Rx Perform Med Rec) 1 each MISCELLANE ONCE PRN PRN Reason: Consult order Sodium Chloride (0.9 % Sodium Chloride Flush 3 Ml Sy[facility]) [facility] Last Admin: 01/13/22 14:04 Dose: 3 ml Documented By: NELLI Labs CBC & Chem 7: 01/13/22 06:22 01/13/22 06:22 Labs: Laboratory Results - last 24 hr 01/13/22 01/13/22 01/13/22 06:22 06:22 08:45 MCV 66.0 L MCH 21.7 L MCHC 32.8 RDW 16.5 H Plt Count 138 L MPV Not Reportable Immature Gran % (Auto) 0.9 H Neut % (Auto) 85.0 H Lymph % (Auto) 8.1 L Sargent % (Auto) 4.8 Eos % (Auto) 0.6 Baso % (Auto) 0.6 Lymph # (Auto) 1.2 Sargent # (Auto) 0.7 Eos # (Auto) 0.1 Baso # (Auto) 0.1 Abs Immat Gran (auto) 0.14 H Absolute Neuts (auto) 12.7 H Absolute Nucleated RBC 0.000 Nucleated RBC % (auto) 0.0 Smear Tech's Comments VERIFIED Anion Gap 23 H Estim Creat Clear Calc 125.1 Estimated GFR > 60 Random Glucose 67 Calcium 8.3 L Phosphorus 2.2 L Magnesium 1.9 Albumin 3.6 Urine Opiates Screen POSITIVE H Urine Fentanyl Screen Not Detected Ur Barbiturates Screen Not Detected Ur Phencyclidine Scrn Not Detected Ur Amphetamines Screen Not Detected U Benzodiazepines Scrn POSITIVE H Urine Cocaine Screen Not Detected U Marijuana (THC) Screen Not Detected Microbiology Microbiology Results: Microbiology 01/11/22 00:18 Urine Culture - Final Urine clean catch - Clean Catch Midstream Klebsiella pneumoniae 01/10/22 17:00 Blood Culture - Final Blood - Venous Klebsiella pneumoniae 01/10/22 16:30 Blood Culture - Final Blood - Venous Klebsiella pneumoniae Assessment and Plan (1) Pyelonephritis: Status: Acute (2) Sepsis: Status: Acute (3) Gram-negative bacteremia: Status: Acute Plan 26 y/o F nephrolithiasis and tobacco dependence admitted for pyelonephritis with sepsis. 1-spesis sec to Acute Pyelonephritis ?elevated leukocytosis trending up.no fevers , tachycardia seems improvin -CT abd/pelvis showed wedge shaped area of hyperenhancement/hyperperfusion in the lower pole of the right kidney with small low-density cortical foci and mild perinephric stranding. Appearance compatible with acute focal pyelonephritis/acute lobal nephronia. No large well-formed abscess identified. The small low-density foci could represent early developing abscess formation. Correlate with UA. -UA with 2+ leuks, 4+ bacteria, negative blood, neg nitrites. UC pending,blood cultures-grew klebsiella Patient had episode of hypotension and was in ICU and was briefly on pressor, also received albumin abd us added -and results reviewed with vascular and urology: CT abdomen finding and ultrasound findings are most likely due to pyelonephritis. Initiate zosyn 4.5mg q6h due to sepsis with possible early abscess formation right kidney,Oxycodone and dilaudid prn with pain scale,Ondansetron prn nausea,Regular diet,Tylenol prn fever urology eval -continue iv antibiotics. Id eval added 2-Sepsis- secondary to pyelonephritis -Leukocytosis 23.4 ,tachycardia improving, Normal lactic acidx2 (since admissio n) -Zosyn and IVF as above. 3-Chronic microcytic anemia- likely iron deficiency -Iron studies ordered 4-Tobacco dependence- vapes nicotine -Nicorette prn 5.boderline blood pressure -flactauting,added ivf . DVT prophylaxis- lovenox Full code COVID-19 negative. Pfizer vaccine x2, not boosted. ? need for inpatient:? klebsiella sepsis secondary to UTI requiring IV antibiotics Quality Stroke Does the patient have a stroke diagnosis?: No VTE Prior VTE?: No VTE Risk Level:: Medical - moderate - high VTE Device Contraindication: Treatment Not Indicated VTE Drug Contraindication: N/A - Med Ordered
[2022-01-13] MEDS: Ibuprofen 400 MG TABLET PO (15:30)
[2022-01-13] MEDS: Omeprazole 20 MG CAPSULE.DR PO (15:30)
--- NOTE | 2022-01-13 15:37 | MHC.CM.PN ---
Per MD rounds no dc today. Patient has a vascular consult and Nephrology consult ordered. DP home no serices family will provide transportation.
[2022-01-13] MEDS: Enoxaparin Sodium 40 MG/0.4 ML SYRINGE SUBCUT (17:58)
[2022-01-14] MEDS: Piperacillin Sodium/Tazobactam 4.5 GM in 0.9 % Sodium Chloride 100 ML IV ×5 (01:33→23:36)
[2022-01-14] MEDS: Acetaminophen 325 MG TABLET 650 MG PO ×3 (01:34→19:49)
[2022-01-14] MEDS: SUMAtriptan succinate 50 MG TABLET PO (02:41)
[2022-01-14 03:25] VITALS: BP 110/65; PULSE 83; RESP 20; TEMP 37.3; O2SAT 98
[2022-01-14] MEDS: Morphine Sulfate 10 MG/ML CARTRIDGE 5 MG IVPUSH (04:09)
[2022-01-14] MEDS: ondansetron HCL 4 MG/2 ML VIAL IVPUSH ×3 (04:09→18:30)
[2022-01-14 05:56] VITALS: BMI 27.8
[2022-01-14] MEDS: Omeprazole 20 MG CAPSULE.DR PO (06:12)
[2022-01-14 08:00] VITALS: BP 123/78; PULSE 61; RESP 20; TEMP 36.8; O2SAT 92
[2022-01-14] MEDS: Sodium,Potassium Phosphates POWD.PACK 1 PACKET PO ×4 (08:09→19:49)
[2022-01-14 08:11] LABS: Hematocrit 28.4 % (37.0-47.0); Hemoglobin 9.2 g/dl (12.0-16.0); Mean Corpuscular HGB Conc 32.4 g/dl (31.0-35.0); Mean Corpuscular Hemoglobin 21.2 pg (27.0-33.0); Mean Corpuscular Volume 65.6 fL (80.0-98.0); Mean Platelet Volume 10.2 fL (9.4-12.3); Platelet Count 253 X10*3/uL (160-400); Red Blood Count 4.33 X10*6/uL (4.20-5.50); Red Cell Distribution Width 16.6 % (11.0-16.0); White Blood Count 7.1 X10*3/uL (4.8-10.8)
[2022-01-14] MEDS: 0.9 % Sodium Chloride Flush 3 ML SYRINGE IVFLUSH ×2 (08:15→19:52)
[2022-01-14] MEDS: HYDROmorphone HCl 1 MG/ML SYRINGE 0.5 MG IVPUSH ×3 (08:17→23:40)
[2022-01-14] MEDS: Ferrous Sulfate 300 MG/5 ML LIQUID PO (08:23)
[2022-01-14 08:34] LABS: Anion Gap 17 (12-20); Blood Urea Nitrogen 10 mg/dL (9-16); Calcium 8.5 mg/dL (8.4-10.2); Carbon Dioxide 24 mmol/L (22-29); Chloride 103 mmol/L (96-108); Creatinine Clr Calc Pharmacy 122.3; Estimated Glomerular Filt Rate > 60; Glucose Random 81 mg/dL (60-115); Potassium 3.5 mmol/L (3.3-5.1); Sodium 140 mmol/L (135-145)
[2022-01-14 11:57] VITALS: BP 120/67; PULSE 58; RESP 20; TEMP 36.9; O2SAT 90
[2022-01-14] MEDS: Ibuprofen 400 MG TABLET PO (12:06)
[2022-01-14] MEDS: Butalb/Acetamin/Caff 50/325/40 TABLET 1 TAB PO (13:12)
[2022-01-14] MEDS: Lactated Ringers 1,000 ML 80 ML IVCONT (13:18)
--- NOTE | 2022-01-14 13:49 | HO.PM.IMPN ---
Subjective Subjective Date of Service: 01/14/22 Interval History: pyelonephritis Review of Systems Patient has intermittent headaches as well as persistent nausea unable to eat Otherwise abdominal pain as per the patient seems to be improving Seems like ibuprofen aggravated nausea. Physical Exam Vital Signs: Vital Signs: Last Vital Signs Temp 98.4 F 01/14/22 11:57 Pulse 58 01/14/22 11:57 Resp 20 01/14/22 11:57 BP 120/67 01/14/22 11:57 Pulse Ox 90 L 01/14/22 11:57 O2 Del Method 01/14/22 11:57 O2 Flow Rate 2 01/13/22 11:48 BMI result Body Mass Index 27.8 Alert.? Oriented X3.? not in distress.? cvs:tachycardic, [id number] . res: fair air entry-diminshed at bases. abd: no rebound or guarding ,diffuse abd pain seems improvin , bs present,soft left Right sided? cva tenderness mostly. ext pulses present , no cyanosis. neuro: axo3 , nonfocal. Objective Data Active Medications Acetaminophen (Acetaminophen 325 Mg Tablet) 650 mg PO Q6H PRN PRN Reason: Fever Last Admin: 01/14/22 08:08 Dose: 650 mg Documented By: SUZANNE Ferrous Sulfate (Ferrous Sulfate 300 Mg/5 Ml Liquid) 300 mg PO BIDWM [facility] Last Admin: 01/14/22 08:23 Dose: 300 mg Documented By: SUZANNE Hydromorphone HCl (Hydromorphone Hcl 1 Mg/Ml Syringe) 0.5 mg IVPUSH Q3H PRN; Protocol PRN Reason: Pain, Severe (Pain Scale 7-10) Last Admin: 01/14/22 08:17 Dose: 0.5 mg Documented By: SUZANNE Piperacillin Sod/Tazobactam (Sod 4.5 gm/ Sodium Chloride) 100 mls @ 200 mls/hr IV Q6H [facility] Last Infusion: 01/14/22 13:25 Dose: 0 mls/hr Documented By: SUZANNE Lactated Ringer's (Lr) 1,000 mls @ 80 mls/hr IVCONT .[id number] [facility] Last Admin: 01/14/22 13:18 Dose: 80 mls/hr Documented By: SUZANNE Melatonin (Melatonin 3 Mg Tablet) 6 mg PO BEDTIME PRN PRN Reason: Sleep Midazolam HCl (Midazolam Hcl/Pf 2 Mg/2 Ml Vial) 0.5 mg IVPUSH Q4H PRN PRN Reason: anxiety Last Admin: 01/13/22 06:24 Dose: 0.5 mg Documented By: FRANCIS Nicotine Polacrilex (Nicotine Polacrilex 2 Mg Gum) 2 mg BUCCAL Q2H PRN PRN Reason: Nicotine Cravings Omeprazole (Omeprazole 20 Mg Capsule.Dr) 20 mg PO DAILY@0630 [facility] Last Admin: 01/14/22 06:12 Dose: 20 mg Documented By: BEBE Ondansetron HCl (Ondansetron Hcl 4 Mg/2 Ml Vial) 4 mg IVPUSH Q6H PRN PRN Reason: Nausea and Vomiting Last Admin: 01/14/22 11:02 Dose: 4 mg Documented By: SUZANNE Oxycodone HCl (Oxycodone Hcl Immed Release 5 Mg Tablet) 5 mg PO Q6H PRN PRN Reason: Pain, Moderate (Pain Scale 4-6 Last Admin: 01/11/22 16:12 Dose: 5 mg Documented By: ASHOK Pharmacy Consult (Consult Rx Perform Med Rec) 1 each MISCELLANE ONCE PRN PRN Reason: Consult order Potassium Phos/Sodium Phos (Sodium,Potassium Phosphates Powd.Pack) 1 packet PO QID [facility] Last Admin: 01/14/22 12:06 Dose: 1 packet Documented By: SUZANNE Sodium Chloride (0.9 % Sodium Chloride Flush 3 Ml Syringe) 3 ml IVFLUSH QSHIFT [facility] Last Admin: 01/14/22 08:15 Dose: 3 ml Documented By: SUZANNE Labs CBC & Chem 7: 01/14/22 07:59 01/14/22 07:59 Labs: Laboratory Results - last 24 hr 01/14/22 01/14/22 07:59 07:59 MCV 65.6 L MCH 21.2 L MCHC 32.4 RDW 16.6 H Plt Count 253 D MPV 10.2 Absolute Nucleated RBC 0.000 Nucleated RBC % (auto) 0.0 Anion Gap 17 Estim Creat Clear Calc 122.3 Estimated GFR > 60 Random Glucose 81 Calcium 8.5 Assessment and Plan (1) Gram-negative bacteremia: Status: Acute (2) Sepsis: Status: Acute (3) Pyelonephritis: Status: Acute Plan 26 y/o F nephrolithiasis and tobacco dependence admitted for pyelonephritis with sepsis. 1-spesis sec to Acute Pyelonephritis ?elevated leukocytosis trending up.no fevers , tachycardia seems improvin -CT abd/pelvis showed wedge shaped area of hyperenhancement/hyperperfusion in the lower pole of the right kidney with small low-density cortical foci and mild perinephric stranding. Appearance compatible with acute focal pyelonephritis/acute lobal nephronia. No large well-formed abscess identified. The small low-density foci could represent early developing abscess formation. Correlate with UA. -UA with 2+ leuks, 4+ bacteria, negative blood, neg nitrites. UC pending,blood cultures-grew klebsiella Patient had episode of hypotension and was in ICU and was briefly on pressor, also received albumin abd us added -and results reviewed with vascular and urology:? CT abdomen finding and ultrasound findings are most likely due to pyelonephritis. Initiate zosyn 4.5mg q6h due to sepsis with possible early abscess formation right kidney,Oxycodone and dilaudid prn with pain scale,Ondansetron prn nausea,Regular diet,Tylenol prn fever urology eval -continue iv antibiotics. Id eval added 2-Sepsis- secondary to pyelonephritis -Leukocytosis 23.4 ,tachycardia improving, Normal lactic acidx2 (since admission) -Zosyn and IVF as above. 3-Chronic microcytic anemia- likely iron deficiency -Iron studies ordered 4-Tobacco dependence- vapes nicotine -Nicorette prn 5. Persistent nausea: Unable to take p.o., possible ibuprofen use had aggravated. Added Phenergan in addition Zofran IV hydration, ppi, lidocaine patch. DVT prophylaxis- mech devices,increase activity Full code COVID-19 negative. Pfizer vaccine x2, not boosted. ? need for inpatient:? klebsiella sepsis secondary to UTI requiring IV antibiotics,Persistent nausea Quality Stroke Does the patient have a stroke diagnosis?: No VTE Prior VTE?: No VTE Risk Level:: Medical - moderate - high VTE Device Contraindication: Treatment Not Indicated VTE Drug Contraindication: N/A - Med Ordered
[2022-01-14 16:00] VITALS: BP 107/66; PULSE 52; RESP 19; TEMP 36.6; O2SAT 93
[2022-01-14] MEDS: Midazolam HCl/PF 2 MG/2 ML VIAL 0.5 MG IVPUSH (19:49)
[2022-01-14 19:53] VITALS: BP 123/71; PULSE 52; RESP 20; TEMP 37.2; O2SAT 93
[2022-01-15] MEDS: Lactated Ringers 1,000 ML 80 ML IVCONT (02:28)
[2022-01-15] MEDS: Ketorolac Tromethamine 15 MG/ML VIAL IVPUSH (02:30)
[2022-01-15] MEDS: Midazolam HCl/PF 2 MG/2 ML VIAL 0.5 MG IVPUSH (02:30)
[2022-01-15 03:33] VITALS: BP 113/55; PULSE 60; RESP 20; TEMP 37; O2SAT 92
[2022-01-15] MEDS: Piperacillin Sodium/Tazobactam 4.5 GM in 0.9 % Sodium Chloride 100 ML IV ×3 (05:41→18:07)
[2022-01-15] MEDS: Omeprazole 20 MG CAPSULE.DR PO (05:41)
[2022-01-15] MEDS: HYDROmorphone HCl 1 MG/ML SYRINGE 0.5 MG IVPUSH (05:45)
[2022-01-15 05:59] VITALS: BMI 27.6
[2022-01-15 07:29] VITALS: BP 115/61; PULSE 63; RESP 18; TEMP 37.2; O2SAT 90
[2022-01-15] MEDS: Lidocaine 4 % Patch ADH..PATCH 1 PATCH TRANSDERMA (09:03)
[2022-01-15] MEDS: Ferrous Sulfate 300 MG/5 ML LIQUID PO ×2 (09:04→18:06)
[2022-01-15] MEDS: Sodium,Potassium Phosphates POWD.PACK 1 PACKET PO ×4 (09:04→20:40)
[2022-01-15] MEDS: Butalb/Acetamin/Caff 50/325/40 TABLET 1 TAB PO ×2 (11:00→18:07)
--- NOTE | 2022-01-15 11:12 | HO.PM.IMPN ---
Subjective Subjective Date of Service: 01/15/22 Interval History: pyelonepnritis, myalgias nausea Review of Systems Seems like vomiting seems to be improved, still has significant myalgias and nausea Denies any chest pain or shortness of breath or fever or chills Physical Exam Vital Signs: Vital Signs: Last Vital Signs Temp 99.0 F 01/15/22 07:29 Pulse 63 01/15/22 07:29 Resp 18 01/15/22 07:29 BP 115/61 01/15/22 07:29 Pulse Ox 90 L 01/15/22 07:29 O2 Del Method 01/15/22 07:29 O2 Flow Rate 1 01/15/22 07:29 BMI result Body Mass Index 27.6 Alert.? Oriented X3.?body pains ? cvs:tachycardic, [id number] . res: fair air entry-diminshed at bases. abd: no rebound or guarding ,diffuse abd pain seems improvin , bs present,soft left Right sided? cva tenderness mostly. ext pulses present , no cyanosis. neuro: axo3 , nonfocal. Objective Data Active Medications Acetaminophen/Butalbital/Caffeine (Butalb/Acetamin/Caff 50/325/40 Tablet) 1 tab PO Q4H PRN PRN Reason: headaches Last Admin: 01/15/22 11:00 Dose: 1 tab Documented By: MARINA Capsaicin (Capsaicin 0.025% Cream 60 Gm Tube) 1 appl TOPICAL QID PRN; Protocol PRN Reason: Pain, Mild (Pain Scale 1-3) Capsaicin (Capsaicin 0.025% Cream 60 Gm Tube) 1 appl TOPICAL QID PRN; Protocol PRN Reason: Pain, Mild (Pain Scale 1-3) Ferrous Sulfate (Ferrous Sulfate 300 Mg/5 Ml Liquid) 300 mg PO BIDWM [facility] Last Admin: 01/15/22 09:04 Dose: 300 mg Documented By: MARINA Piperacillin Sod/Tazobactam (Sod 4.5 gm/ Sodium Chloride) 100 mls @ 200 mls/hr IV Q6H [facility] Last Infusion: 01/15/22 06:20 Dose: 0 mls/hr Documented By: BEBE Lactated Ringer's (Lr) 1,000 mls @ 80 mls/hr IVCONT .[id number] [facility] Last Admin: 01/15/22 02:28 Dose: 80 mls/hr Documented By: BEBE Melatonin (Melatonin 3 Mg Tablet) 6 mg PO BEDTIME PRN PRN Reason: Sleep Nicotine Polacrilex (Nicotine Polacrilex 2 Mg Gum) 2 mg BUCCAL Q2H PRN PRN Reason: Nicotine Cravings Omeprazole (Omeprazole 20 Mg Capsule.) 20 mg PO DAILY@0630 [facility] Last Admin: 01/15/22 05:41 Dose: 20 mg Documented By: BEBE Ondansetron HCl (Ondansetron Hcl 4 Mg/2 Ml Vial) 4 mg IVPUSH Q6H PRN PRN Reason: Nausea and Vomiting Last Admin: 01/14/22 18:30 Dose: 4 mg Documented By: SUZANNE Oxycodone HCl (Oxycodone Hcl Immed Release 5 Mg Tablet) 5 mg PO Q6H PRN PRN Reason: Pain, Moderate (Pain Scale 4-6 Last Admin: 01/11/22 16:12 Dose: 5 mg Documented By: ASHOK Pharmacy Consult (Consult Rx Perform Med Rec) 1 each MISCELLANE ONCE PRN PRN Reason: Consult order Potassium Phos/Sodium Phos (Sodium,Potassium Phosphates Powd.Pack) 1 packet PO QID [facility] Last Admin: 01/15/22 09:04 Dose: 1 packet Documented By: MARINA Sodium Chloride (0.9 % Sodium Chloride Flush 3 Ml Syringe) 3 ml IVFLUSH QSHIFT [facility] Last Admin: 01/15/22 09:02 Dose: Not Given Documented By: MARINA Non-Admin Reason: IV Running Labs CBC & Chem 7: 01/14/22 07:59 01/14/22 07:59 Assessment and Plan (1) Gram-negative bacteremia: Status: Acute (2) Sepsis: Status: Acute (3) Pyelonephritis: Status: Acute (4) Head ache: Status: Acute Plan 26 y/o F nephrolithiasis and tobacco dependence admitted for pyelonephritis with sepsis. 1-spesis sec to Acute Pyelonephritis ?elevated leukocytosis trending up.no fevers , tachycardia seems improvin UC pending,blood cultures-grew klebsiella-pansensitive abd us reviewed with vascular and urology:? CT abdomen finding and ultrasound findings are most likely due to pyelonephritis. Initiate zosyn 4.5mg q6h due to sepsis with possible early abscess formation right kidney,Oxycodone and dilaudid prn with pain scale,Ondansetron prn nausea,will try to clear diet if tolerate -switch to regular,,Tylenol prn fever urology eval -continue iv antibiotics. Id eval added 2-Sepsis- secondary to pyelonephritis -Leukocytosis seems improved ,tachycardia improving, Normal lactic acidx2 (since admission) -Zosyn and IVF as above. 3-Chronic microcytic anemia- likely iron deficiency possible iron def added iron 4-Tobacco dependence- vapes nicotine -Nicorette prn 5. Persistent nausea: Unable to take p.o., possible ibuprofen use had aggravated. Added Phenergan in addition Zofran IV hydration, ppi, lidocaine patch. 6. family hx of migrane and intermittent headaches at home: trial of fioricet DVT prophylaxis- mech devices,increase activity COVID-19 negative. Pfizer vaccine x2, not boosted. ? need for inpatient:? klebsiella sepsis secondary to UTI requiring IV antibiotics,Persistent nausea Quality Stroke Does the patient have a stroke diagnosis?: No VTE Prior VTE?: No VTE Risk Level:: Medical - moderate - high VTE Device Contraindication: Treatment Not Indicated VTE Drug Contraindication: N/A - Med Ordered
[2022-01-15 14:44] VITALS: BP 122/72; PULSE 56; RESP 20; TEMP 37.1; O2SAT 99
[2022-01-15 15:31] VITALS: BP 106/59; PULSE 60; RESP 19; TEMP 37.2; O2SAT 99
[2022-01-15] MEDS: 0.9 % Sodium Chloride Flush 3 ML SYRINGE IVFLUSH (20:41)
[2022-01-15] MEDS: ondansetron HCL 4 MG/2 ML VIAL IVPUSH (20:43)
[2022-01-15] MEDS: Melatonin 3 MG TABLET 6 MG PO (21:00)
[2022-01-15 21:23] VITALS: RESP 18
[2022-01-15] MEDS: Morphine Sulfate 4 MG/ML CARTRIDGE IVPUSH (21:23)
[2022-01-15 23:10] VITALS: BP 109/65; PULSE 58; RESP 17; TEMP 37.9; O2SAT 95
[2022-01-16] MEDS: Piperacillin Sodium/Tazobactam 4.5 GM in 0.9 % Sodium Chloride 100 ML IV ×2 (00:01→06:19)
[2022-01-16] MEDS: Acetaminophen 325 MG TABLET 650 MG PO (00:01)
[2022-01-16] MEDS: Lidocaine 4 % Patch ADH..PATCH 1 PATCH TRANSDERMA ×2 (00:02→08:17)
[2022-01-16 04:00] VITALS: BP 105/64; PULSE 63; RESP 18; TEMP 36.8; O2SAT 100
[2022-01-16 06:00] VITALS: BMI 24.9
[2022-01-16] MEDS: Omeprazole 20 MG CAPSULE.DR PO (06:19)
[2022-01-16] MEDS: Butalb/Acetamin/Caff 50/325/40 TABLET 1 TAB PO (06:20)
[2022-01-16 07:00] VITALS: BP 113/67; PULSE 51; RESP 19; TEMP 37.1; O2SAT 97
[2022-01-16] MEDS: 0.9 % Sodium Chloride Flush 3 ML SYRINGE IVFLUSH (08:17)
[2022-01-16] MEDS: Sodium,Potassium Phosphates POWD.PACK 1 PACKET PO (08:17)
[2022-01-16] MEDS: Ferrous Sulfate 300 MG/5 ML LIQUID PO (08:17)
--- NOTE | 2022-01-16 10:18 | MHC.CM.PN ---
pt dcd no skilled servceis ordered by
--- NOTE | 2022-01-25 13:49 | P.DS_ITS ---
DS: Providers Provider Date of Service: 01/16/22 Date of admission: 01/10/22 18:01 Primary care physician: WILLARD Ingram Consults: 01/11/22 09:46 Consult to Critical Care Routine Consulting Provider: Manny De Guzman Reason for consultation: Sepsis/pyelonephritis /hypotension-not improvin Has provider been notified: No 01/12/22 14:20 Consult to Urology Routine Consulting Provider: Tonny Hunter Reason for consultation: uti/?reanl abcess Has provider been notified: No 01/13/22 07:43 Consult to Vascular Surgery Routine Consulting Provider: Clark Jo Reason for consultation: pyelonephritis-? renal infract Has provider been notified: No 01/13/22 17:01 Consult to Infectious Diseases Routine Consulting Provider: Sarah Sanchez Reason for consultation: sepsis/pyelo-? early renal abcess DS: Diagnosis Discharge Diagnosis (1) Gram-negative bacteremia: Status: Acute (2) Sepsis: Status: Resolved (3) Pyelonephritis: Status: Acute (4) Head ache: Status: Acute DS: Summary Hospital Course Hospital Course: Date of service and discharged:01/16/22 Patient with history of nephrolithiasis who vapes nicotine daily presented to hospital this morning for evaluation of myalgias, fatigue, malaise, nausea, vomiting, dizziness described as lightheadedness, headache without vision changes, bilateral flank pain, diffuse abdominal pain all of which started last night around 23:00. On arrival temperatue 100.0, tachycardic at 133. No hypotension. Leukocytosis 15.5. Stable microcytic anemia 10.6/33.7%. Renal function normal. UA with 2+ leuks, neg blood, 4+ bacteria, neg nitrites. CT abd/pelvis showed wedge shaped area of hyperenhancement/hyperperfusion in the lower pole of the right kidney with small low-density cortical foci and mild perinephric stranding. Appearance compatible with acute focal pyelonephritis/acute lobal nephronia. No large well-formed abscess identified. The small low-density foci could represent early developing abscess formation. Correlate with UA. CXR negative. IN ED, received IV fluids and 750mg levaquin IV as well as tylenol and ketorolac. Reporting 8/10 pain b/l flank and diffuse abdomen. hospital course: Patient came to the hospital because of severe urinary tract infection -started on IV antibiotics seems to be improved significantly-in addition patient was found to have bacteria in the blood and urine: Antibiotics switched according to bacterial sensitivity, please complete the course of antibiotics. Please check blood counts and electrolytes and renal function outpatient with PCP in 1 week. Headaches seems to be resolved-patient has history of migraine in family, if continue to have had follow-up with PCP. Limited fiocet the IV line no supply was giveen. plan: Complete the course of antibiotics. Monitor CBC and BMP as above. Follow-up with PCP out patiently. ?Above management discussed with the patient in detail length she understand and in agreement with the above plan, time spent 50 minutes and 50% time spent on counseling. Significant findings: As above. Procedures performed: None. Treatment and response: As above. Complications: None. Time Spent with Patient Time attestation: Total time spent providing and/or coordinating discharge services: Discharge coordination time: Greater than 30 minutes Quality: Safe Use of Opioids Does Pt have an Active Cancer Diagnosis on the Problem List?: No Quality: Stroke Does the patient have a stroke diagnosis?: No Physical Exam Vital Signs: Vital Signs: Last Vital Signs Temp 98.7 F 01/16/22 07:00 Pulse 51 01/16/22 07:00 Resp 19 01/16/22 07:00 BP 113/67 01/16/22 07:00 Pulse Ox 97 01/16/22 07:00 O2 Del Method 01/16/22 07:00 O2 Flow Rate 1 01/15/22 07:29 BMI result Body Mass Index 24.9 Alert.? Oriented X3.?body pains ? cvs:tachycardic, [id number] . res: fair air entry-diminshed at bases. abd: no rebound or guarding ,nt, bs present,soft left Right sided? cva tenderness mostly. ext pulses present , no cyanosis. neuro: axo3 , nonfoca DS: Data Data Completed and Pending Completed studies during hospitalization [Text1]: Procedures Introduction of Vasopressor into Peripheral Vein, Percutaneous Approach (01/10/22) Additional Comments Additional comments: 01/14/2209/10/22?07:5907:[id number]?65.6 L?MCH?21.2 L?MCHC?32.4?RDW?16.6 H?Plt Count?253? D?MPV?10.2?Absolute Nucleated RBC?0.000?Nucleated RBC % (auto)?0.0? Anion Gap??17Estim Creat Clear Calc??122.3Estimated GFR??> 60Random Glucose? ?81Calcium??8.5. CT/CT abdomen pelvis w IV con IMPRESSION: ? 1. Wedge-shaped area of hyperenhancement/hyperperfusion in the lower pole of the right kidney with small low-density cortical foci and mild perinephric stranding. Appearance is compatible with acute focal pyelonephritis/acute lobar nephronia. No large well-formed abscess identified. The small low-density foci could represent early developing abscess formation. Correlate with urinalysis. US/US renal BI IMPRESSION: The abnormality of the right kidney is better depicted on the recent abdomen CT than on this ultrasound examination. There is no sonographic evidence of renal abscess or perinephric fluid collection. There is an area of slightly altered parenchymal echotexture of the mid to lower pole of the right kidney, and this corresponds to the area of suspected pyelonephritis and possible early abscess formation seen on 01/10/2022. ? Small left pleural effusion is present. Discharge Plan Discharge Patient Disposition: Home, Self-Care Discharge Diagnosis: SEPSIS, PYELONEPHRITIS Referrals: Nila Diaz FNP-C [Primary Care Provider] - 1 Week Physician,Unknown J [Physician] - 2 days Discharge Medications: New cefuroxime axetil 500 mg tablet 500 mg PO BID Qty: 20 0RF dxrvdmiuhk-geajegnnhbhin-wjkh 50-325-40 mg Tablet 1 tab PO Q4H PRN (Reason: headaches ) Qty: 5 0RF ferrous sulfate 300 mg (60 mg iron)/5 mL Liquid 300 mg PO BIDWM Qty: 60 0RF omeprazole 20 mg Capsule,Delayed Release(Dr/Ec) 20 mg PO DAILY@0630 Qty: 30 0RF Discharge Orders: Discharge Order (Routine); Ordered 01/16/22 Ordered By: Jeremie Solano Diet: Advance to usual diet Activity on Discharge: As tolerated Stand Alone Forms: Patient Portal Discharge page, Work/School Release Care Plan Goals: Patient came to the hospital because of severe urinary tract infection -started on IV antibiotics seems to be improved significantly-in addition patient was found to have bacteria in the blood and urine: Antibiotics switched according to bacterial sensitivity, please complete the course of antibiotics. Please check blood counts and electrolytes and renal function outpatient with PCP in 1 week. Headaches seems to be resolved-patient has history of migraine in family, if continue to have had follow-up with PCP. Limited few sec supply was given. Health Concerns: If patient develops significant abdominal pain or any urinary complaints or fever or chills or any new symptoms -please go to nearest emergency room for further evaluation. Plan of Treatment: Complete the course of antibiotics. Monitor CBC and BMP as above. Follow-up with PCP out patiently. Assessment: As above. Patient Instructions: Urinary Tract Infection in Children (DC), Sepsis (GEN), Bacteremia (DC) Discharge Date/Time: 01/16/22 10:43
== END 2022-01-16 10:43 | disposition home or self-care (01) | DRG 720 ==
LOC: HO.ED 17:39 → HO.EDOVER 18:21 → HO.ICU 01-11 11:20 → HO.IMC 01-12 17:51
PROVIDERS: Internal Medicine; Internal Medicine Pulmonary Disease; Physician Assistant; Admitting Provider Physician Assistant; Emergency Provider Emergency Medicine; PCP Nurse Practitioner Family; Visit Provider Internal Medicine
DX: A41.9 Sepsis, unspecified organism (principal); R65.21 Severe sepsis with septic shock; D50.9 Iron deficiency anemia, unspecified; F17.210 Nicotine dependence, cigarettes, uncomplicated; N10 Acute pyelonephritis; E87.6 Hypokalemia; B96.1 Klebsiella pneumoniae [K. pneumoniae] as the cause of diseases classified elsewhere; R51.9 Headache, unspecified; Z20.822 Contact with and (suspected) exposure to COVID-19; Z28.311 Partially vaccinated for COVID-19; Z71.6 Tobacco abuse counseling; Z87.442 Personal history of urinary calculi
CPT/HCPCS: 0241U; 36415; 71045; 74177; 76775; 80048; 80076; 80307; 81001; 82040; 82728; 82803; 83540; 83605; 83735; 84100; 84484; 84702; 85007; 85025; 85027; 86308; 87040; 87077; 87086; 87088; 87186; 87205; 87635; 93005; 96361; 96372; 96374; 99285; J1170; J1650; J1885; J1956; J2250; J2270; J2405; J2543; J2550; J3475; P9047; Q9967